=== PATIENT | female | born 1995 | race Caucasian/White ===

== ENCOUNTER 2016-06-12 13:24 | Emergency (ER) | payer MEDICAID ==
[~2016-06-12] VITALS: Ht 157.5 cm; Wt 57.2 kg
[~2016-06-12 13:24] MED LIST: DCS100C PO; FRS325T PO; HYDR-3812 PO; HYDR1CAP2 PO; IBP600T1 PO; IBUP-1773 PO; OXYC-12 PO; PREN-148 PO; PREN1TAB39 PO
--- OUTSIDE RECORDS SUMMARY | 2016-06-12 13:29 | XMS REPORT ---
Author Author NGUYEN NORIEGA Organization [employer] Address Unknown Phone Unavailable Care Team Providers Care Dry Wall Sprayer Name Role Phone NGUYEN NORIEGA CP Unavailable Allergies No Known Allergies Problems Problem Type Condition ICD-9 Code Onset Dates Condition Status Assessment Dental examination V72.2 Active Medications No Known Medications Procedures Procedure Coding System Code Date Periodontal scaling & root CPT-4 D4341 October 29, 2014 Billing Notes on claim CPT-4 EC109 October 29, 2014 Periodontal scaling & root CPT-4 D4341 October 29, 2014 Results No Known Results Summary Purpose [employer] Submission
--- NOTE | 2016-06-12 14:36 | ED GU-Female ---
General Chief Complaint: -Female Stated Complaint: VAGINAL BLEEDING Nursing Triage Note: AMB TO ROOM FOUND OUT YESTERDAY AT [facility] SHE IS APX 8 WEEKS PREG. ONSET TODAY OF VAG BLEEDING NO CRAMPING. Nursing Sepsis Screen: No Definite Risk Source: patient Exam Limitations: no limitations History of Present Illness Time seen by provider: 14:35 Initial Comments 20-year-old female patient presents to the emergency department with complaints of onset of vaginal bleeding today. Patient reports finding out yesterday she is at [facility] and estimates to be approximately 8 weeks . Timing/Duration: this morning Severity/Quality: mild Location: vaginal Radiation: none Activities at Onset: none Prior Genitourinary Problems: none Sexual [place] History: less than 2 months ago, single partner Modifying Factors: Worsens With Other (denies modifying factors) Allergies and Home Medications Allergies Coded Allergies: No Known Drug Allergies (Unverified , 01/28/10) Home Medications Cephalexin 500 Mg Capsule #9 500 MG PO TID Prescribed by: VISHNU CESAR on 06/12/16 1612 Ferrous Sulfate 325 Mg Tablet 1 TAB PO BID (Reported) Hydrocodone/Acetaminophen 1 Each Tablet #30 1 TAB PO Q4H PRN PRN PAIN Prescribed by: NIECY BAUMANN on 02/07/15 1005 Ibuprofen 600 Mg Tablet #60 600 MG PO Q6H PRN PRN PAIN Prescribed by: NIECY BAUMANN on 02/07/15 1005 Vit #76/Iron,Carb/FA 1 Each Tablet 1 EACH PO (Reported) Constitutional: No chills, No diaphoresis, No dizziness, No fever, No malaise, No weakness EENTM: no symptoms reported Respiratory: no symptoms reported Cardiovascular: no symptoms reported Gastrointestinal: No abdominal pain, No constipation, No diarrhea, No loss of appetite, No nausea, No vomiting Genitourinary: see HPIdenies burning, denies dysuria, denies frequency, denies flank pain, denies pain : Yes Musculoskeletal: No back pain Skin: no symptoms reported Psychiatric/Neurological: No Symptoms Reported All Other Systemes Reviewed Negative Unless Noted: Yes (Negative excepted noted.) Past Qawszoi-Icxzwv-Cwjzru Hx Patient Social History Former Smoker/When Quit: Jun 05, 2014 Recent Foreign Travel: No Contact w/Someone Who Travel: No Recent Infectious Disease Expo: No Recent Hopitalizations: No Immunizations Up To Date Tetanus Booster (TDap): Less than 5yrs PED Vaccines UTD: No Surgeries HX Surgeries: No Respiratory Hx Respiratory Disorders: No Cardiovascular Hx Cardiac Disorders: No Neurological Hx Neurological Disorders: No Reproductive System : Yes Hx : 3 Hx Para: 2 Hx Reproductive Disorders: No Genitourinary Hx Genitourinary Disorders: No Gastrointestinal Hx Gastrointestinal Disorders: No Musculoskeletal Hx Musculoskeletal Disorders: No Endocrine Hx Endocrine Disorders: No HEENT HX ENT Disorders: No Cancer Hx Cancer: No Psychosocial Hx Psychiatric Problems: No Integumentary HX Skin/Integumentary Disorder: No Blood Transfusions Hx Blood Disorders: No Adverse Reaction to a Blood Tr: No Reviewed Nursing Assessment Reviewed/Agree w Nursing PMH: Yes Family Medical History Significant Family History: No Pertinent Family Hx Family Medial History: Alcoholism Asthma G8 BROTHER, Onset:Childhood Physical Exam Vital Signs Vital Sign - Last 12Hours 06/12/16 14:00 Temp 98.8 Pulse 98 Resp 22 B/P 118/72 Pulse Ox 99 O2 Delivery Room Air Capillary Refill : Less Than 3 Seconds General Appearance: WD/WN no apparent distress Neck: supple normal inspection Cardiovascular: normal peripheral pulses regular rate, rhythm no edema no murmur Respiratory: lungs clear normal breath sounds no respiratory distress Gastrointestinal: normal bowel sounds non tender soft no organomegalyNo distended Back: normal inspection no CVA tenderness Extremities: no pedal edema normal capillary refill Neurologic/Psychiatric: alert normal mood/affect oriented x 3 Skin: normal color warm/dry Progress/Results/Core Measures Results/Orders Lab Results Laboratory Tests Test 06/12/16 14:57 06/12/16 15:40 Range/Units Basophils # (Auto) 0.1 0.0-0.1 10^3/uL Basophils (%) (Auto) 0 0-10 % Eosinophils # (Auto) 0.3 0.0-0.3 10^3/uL Eosinophils (%) (Auto) 3 0-10 % Hematocrit 40 35-52 % Hemoglobin 13.6 11.5-16.0 G/DL Human Chorionic Gonadotropin, Quant 1321 H <5 MIU/ML Lymphocytes # (Auto) 4.0 1.0-4.0 X 10^3 Lymphocytes (%) (Auto) 34 12-44 % Mean Corpuscular Hemoglobin 31 25-34 PG Mean Corpuscular Hemoglobin Concent 34 32-36 G/DL Mean Corpuscular Volume 91 80-99 FL Mean Platelet Volume 10.0 7.4-10.4 FL Monocytes # (Auto) 1.3 H 0.0-1.0 X 10^3 Monocytes (%) (Auto) 11 0-12 % Neutrophils # (Auto) 6.0 1.8-7.8 X 10^3 Neutrophils (%) (Auto) 51 42-75 % Platelet Count 287 130-400 10^3/uL Red Blood Count 4.39 4.35-5.85 10^6/uL Red Cell Distribution Width 15.2 H 10.0-14.5 % White Blood Count 11.7 H 4.3-11.0 10^3/uL Urine Bacteria NEGATIVE /HPF Urine Bilirubin NEGATIVE NEGATIVE Urine Casts NONE /LPF Urine Clarity SLIGHTLY CLOUDY Urine Color YELLOW Urine Crystals NONE /LPF Urine Culture Indicated NO Urine Glucose (UA) NEGATIVE NEGATIVE Urine Ketones NEGATIVE NEGATIVE Urine Leukocyte Esterase 1+ H NEGATIVE Urine Mucus NEGATIVE /LPF Urine Nitrite NEGATIVE NEGATIVE Urine Protein NEGATIVE NEGATIVE Urine RBC 0-2 /HPF Urine RBC (Auto) 4+ H NEGATIVE Urine Specific [place] 1.015 L 1.016-1.022 Urine Squamous Epithelial Cells 25-50 H /HPF Urine Urobilinogen 4 H NORMAL MG/DL Urine WBC RARE /HPF Urine pH 8 5-9 My Orders Orders-VISHNU CESAR Cbc With Automated Diff (06/12/16 14:24) Hcg,Quantitative (06/12/16 14:24) Ua Culture If Indicated (06/12/16 14:24) Us Ob Single Fetus<14 [id number] (06/12/16 14:24) Vital Signs/I&O Vital Sign - Last 12Hours 06/12/16 06/12/16 14:00 16:34 Temp 98.8 Pulse 98 89 Resp 22 18 B/P 118/72 Pulse Ox 99 98 O2 Delivery Room Air Blood Pressure Mean: 87 Diagnostic Imaging Diagonstic Imaging: Ultrasound Plain Films/CT/US/NM/MRI: pelvis Comments FINDINGS: Single live intrauterine is identified with a heart rate of 121 beats per minute. There is no subchorionic hemorrhage. The adnexa are normal , bilaterally. IMPRESSION: 1. Single live intrauterine , 6 weeks 2 days , with a due date of 02/03/17. 2. No abnormality identified. Dictated by: Dictated on workstation # [id number] Reviewed: Reviewed by Me (radiology report reviewed by me.) Departure Communication Progress Notes Laboratory and diagnostic findings discussed with the patient. Plan for discharge to home with follow-up as an outpatient with Dr. Avila this week. All return precautions were discussed with the patient as described in the discharge instructions of this report. Patient voices understanding and agrees with the treatment plan. Patient case discussed with Dr. Pastor, he agrees with the plan of care. Impression Impression: Primary Impression: Threatened miscarriage in early Disposition: HOME, SELF-CARE Condition: Improved Departure-Patient Inst. Decision time for Depature: 16:11 Referrals: SOPHIA AVILA MD (PCP/Family) Primary Care Physician Patient Instructions: Threatened Miscarriage (DC) Add. Discharge Instructions: All discharge instructions reviewed with patient and/or family. Voiced understanding. Medications as directed. Tylenol over the counter as needed for pain. Drink plenty of fluids. No strenuous activity, tampons, or intercourse until released by your primary care physician or bill distributor. Follow-up with your bill distributor Monday or Monday for recheck, repeat labs/ ultrasound, to establish care, and for possible need for pap smear. Return to the emergency department for worsened bleeding (greater than 2 pads per hour for 2 hours), vaginal discharge, fever, difficulty urinating, or any other concerns. Scripts Cephalexin 500 Mg [id number] Mg PO TID #9 CAP Ref 0 Prov:VISHNU CESAR 06/12/16 Work/School Note: Local Medical Staff Listing, Work Release Form Date Seen in the Emergency Department: Jun 12, 2016 Return to Work: Jun 14, 2016 Other Restrictions Listed Below: no strenuous activity until released by your OB. VISHNU CESAR Jun 12, 2016 14:35
[2016-06-12 15:06] LABS: BASOPHILS # (AUTO) 0.1 10^3/uL (0.0-0.1); BASOPHILS % (AUTO) 0 % (0-10); EOSINOPHILS # (AUTO) 0.3 10^3/uL (0.0-0.3); EOSINOPHILS % (AUTO) 3 % (0-10); LYMPHOCYTES % (AUTO) 34 % (12-44); MEAN CORPUSCULAR HEMOGLOBIN 31 PG (25-34); MEAN CORPUSCULAR HGB CONC 34 G/DL (32-36); MEAN CORPUSCULAR VOLUME 91 FL (80-99); MONOCYTES # (AUTO) 1.3 X 10^3 (0.0-1.0); MONOCYTES % (AUTO) 11 % (0-12); NEUTROPHILS % (AUTO) 51 % (42-75); PLATELET COUNT 287 10^3/uL (130-400); RED BLOOD COUNT 4.39 10^6/uL (4.35-5.85); RED CELL DISTRIBUTION WIDTH 15.2 % (10.0-14.5); WHITE BLOOD COUNT 11.7 10^3/uL (4.3-11.0)
[2016-06-12 15:47] LABS: BILIRUBIN,URINE NEGATIVE (NEGATIVE); KETONES,URINE NEGATIVE (NEGATIVE); LEUKOCYTE ESTERASE ,URINE 1+ (NEGATIVE); NITRITE,URINE NEGATIVE (NEGATIVE); PH,URINE 8 (5-9); PROTEIN,URINE NEGATIVE (NEGATIVE); UROBILINOGEN,URINE 4 MG/DL (NORMAL)
--- NOTE | 2016-06-12 15:48 | Diagnostic Imaging Report ---
INDICATION: Vaginal bleeding, early . COMPARISON: None. EXAMINATION: OB ultrasound. FINDINGS: Single live intrauterine is identified with a heart rate of 121 beats per minute. There is no subchorionic hemorrhage. The adnexa are normal, bilaterally. IMPRESSION: 1. Single live intrauterine , 6 weeks 2 days, with a due date of 02/03/17. 2. No abnormality identified. Dictated by: Dictated on workstation # [id number]
[2016-06-12 16:03] LABS: SQUAMOUS EPITHELIAL CELL,UR 25-50 /HPF; WBC,URINE RARE /HPF
[2016-06-12] MEDS ORDERED: CEPH500C PO (16:12)
[2016-06-12 16:34] VITALS: BP 120/72
== END 2016-06-12 16:35 | disposition home or self-care (01) ==
LOC: EDUNIT# 13:24 → ER 13:26
DX: O20.0 Threatened abortion (principal); Z3A.01 Less than 8 weeks gestation of pregnancy
CPT/HCPCS: 36415; 76801; 81000; 84702; 85025

== ENCOUNTER → 2016-06-17 | Outpatient (CLI) | payer MEDICAID ==
[~2016-06-17] MED LIST changes: +CEPH500C PO
--- NOTE | 2016-06-17 11:51 | Diagnostic Imaging Report ---
First trimester OB ultrasound. INDICATION: Pelvic cramping and passage of tissue. FINDINGS: The uterus is 8.1 x 4 x 5.3 cm. The endometrial stripe is 6 mm in thickness. Unfortunately the previously seen gestational sac and embryo on exam from 06/12/2016 is not present at this time compatible with interval complete . There is no endometrial significant thickening, heterogeneity, or increased vascularity seen. No portions of the sac or embryo are identified to suggest retained products. The myometrium appears homogeneous. The right ovary is 3.6 x 3.8 x 2.5 cm and appears normal. The left ovary is obscured by bowel loops. IMPRESSION: Findings compatible with interval spontaneous complete . Report was called/ faxed to (closed) office of Dr. Chopra @ 11:49 AM/mary. Dictated by: Dictated on workstation # [id number]
== END ==
LOC: RAD 10:12
PROVIDERS: ATTEND Family Medicine
DX: O03.9 Complete or unspecified spontaneous abortion without complication (principal); Z3A.00 Weeks of gestation of pregnancy not specified
CPT/HCPCS: 76801

== ENCOUNTER → 2016-10-13 | Outpatient (CLI) | payer MEDICAID ==
--- NOTE | 2016-10-13 12:45 | Diagnostic Imaging Report ---
First trimester OB ultrasound. INDICATION: Dating. FINDINGS: There is a normal-appearing single intrauterine . An embryo is seen with cardiac activity at 169 beats per minute. The crown-rump length is at 11 weeks and zero day. RUBEN is 05/04/17. Normal appearing right ovary seen. Left ovary is obscured by bowel gas. IMPRESSION: Live single intrauterine . Dictated by: Dictated on workstation # [id number]
== END ==
LOC: RAD 10:34
PROVIDERS: ATTEND Family Medicine
DX: Z36 Encounter for antenatal screening of mother (principal); Z3A.11 11 weeks gestation of pregnancy
CPT/HCPCS: 76801

== ENCOUNTER → 2016-12-09 | Outpatient (CLI) | payer MEDICAID ==
--- NOTE | 2016-12-09 14:41 | Diagnostic Imaging Report ---
INDICATION: Undergoing anatomical evaluation. TECHNIQUE: Multiple real-time grayscale images were obtained over the gravid uterus. COMPARISON: None FINDINGS: Single viable intrauterine currently in cephalic presentation. Normal amount of amniotic fluid. Placenta is anterior and low-lying. Definitive previa does not appear to be present. Visualized anatomical structures are unremarkable. The four-chamber heart however is unable to be visualized on current examination. There was reported active heart rate, however no pictures were able to be obtained. Biometrical measurements are as follows: Biparietal 3.89 cm, age 17 weeks 6 days. Head circumference 15.05 cm, age 18 weeks 1 days. Abdominal circumference 12.45 cm, age 18 weeks 1 days. Femur length 2.72 cm, age 18 weeks 3 days. Sonographic estimate age: 18 weeks 1 days. Sonographic estimated date of delivery: 05/11/17. Estimated Weight: 227 gm (+/- 33 gm). LMP percentile: 7%. heart rate: regular beats per minute. number: 1 of 1. IMPRESSION: 1. Single viable intrauterine currently in cephalic presentation. Current sonographic estimated age at 18 weeks one day for an estimated date of delivery 05/11/2017. No abnormalities noted at this time. However, the four-chamber heart could not be adequately visualized at this time. 2. Additionally, the placenta is low-lying without definitive evidence for previa. Dictated by: Dictated on workstation # [id number]
== END ==
LOC: RAD 11:39
PROVIDERS: ATTEND Family Medicine
DX: Z36 Encounter for antenatal screening of mother (principal); Z3A.18 18 weeks gestation of pregnancy
CPT/HCPCS: 76805

== ENCOUNTER → 2017-02-13 | Outpatient (CLI) | payer MEDICAID ==
--- NOTE | 2017-02-13 19:07 | Diagnostic Imaging Report ---
INDICATION: Follow-up placenta and four-chamber view. COMPARISON: 12/09/2016. TECHNIQUE: Multiple real-time grayscale images were obtained over the gravid uterus. FINDINGS: heart rate is 143 beats per minute. The placenta is anterior. No placenta previa. The four-chamber view appears grossly unremarkable. The cervix appears long and closed with 4.2 cm length. JANAY is 9 cm. IMPRESSION: The placenta is anterior with no placenta previa. The four-chamber view appears unremarkable. Dictated by: Dictated on workstation # [id number]
== END ==
LOC: RAD 13:22
PROVIDERS: ATTEND Family Medicine
DX: Z36 Encounter for antenatal screening of mother (principal); Z3A.00 Weeks of gestation of pregnancy not specified
CPT/HCPCS: 76816

== ENCOUNTER 2017-04-17 10:34 | Outpatient (CLI) | payer MEDICAID ==
[~2017-04-17] VITALS: Ht 157.5 cm; Wt 74.4 kg
[2017-04-17 10:45] VITALS: BP 120/71
[2017-04-17] MEDS ORDERED: D5 LR IV SOLUTION 1,000 ML IV SCH (11:15)
[2017-04-17 11:19] LABS: BILIRUBIN,URINE NEGATIVE (NEGATIVE); KETONES,URINE NEGATIVE (NEGATIVE); LEUKOCYTE ESTERASE ,URINE 2+ (NEGATIVE); NITRITE,URINE NEGATIVE (NEGATIVE); PH,URINE 7 (5-9); PROTEIN,URINE NEGATIVE (NEGATIVE); UROBILINOGEN,URINE NORMAL (NORMAL)
[2017-04-17 11:29] LABS: SQUAMOUS EPITHELIAL CELL,UR 25-50 /HPF
[2017-04-17] MEDS ORDERED: INFLUENZA TRIvalent 2017-2018 0.5 ML/45 MCG SYR IM ONE (12:15)
[2017-04-17 12:50] VITALS: BP 108/67
[2017-04-17 13:15] VITALS: BP 108/67
--- NOTE | 2017-04-18 11:44 | Physician Query-Final Dx ---
YOLETTE GUPTA 04/18/17 1144: Clinic Account Progress/Dx Physician Query: Please give diagnosis Date of Service Apr 17, 2017 at 10:34 SOPHIA AVILA MD 04/19/17 0713: Clinic Account Progress/Dx DIAGNOSIS: Diagnosis 1. IUP at 37 weeks 2. Uterine irritability, non-labor YOLETTE GUPTA Apr 18, 2017 11:44 SOPHIA AVILA MD Apr 19, 2017 07:13
== END 2017-04-17 13:15 | disposition home or self-care (01) ==
LOC: WSo 10:34 → LDRP 10:34 → WSo 13:15
PROVIDERS: ATTEND Family Medicine
DX: N85.9 Noninflammatory disorder of uterus, unspecified (principal); Z3A.37 37 weeks gestation of pregnancy
CPT/HCPCS: 81000; 96360; 96361; 99213

== ENCOUNTER 2017-04-22 20:50 | Outpatient (CLI) | payer MEDICAID ==
[~2017-04-22] VITALS: Ht 157.5 cm; Wt 77.1 kg
[2017-04-22 21:00] VITALS: BP 124/71
[2017-04-22 21:07] VITALS: BP 124/71
[2017-04-22 21:09] LABS: BILIRUBIN,URINE NEGATIVE (NEGATIVE); KETONES,URINE 1+ (NEGATIVE); LEUKOCYTE ESTERASE ,URINE 2+ (NEGATIVE); NITRITE,URINE NEGATIVE (NEGATIVE); PH,URINE 6.5 (5-9); PROTEIN,URINE 1+ (NEGATIVE); UROBILINOGEN,URINE 4 MG/DL (NORMAL)
[2017-04-22 21:35] VITALS: BP 112/68
[2017-04-22 21:51] LABS: SQUAMOUS EPITHELIAL CELL,UR >50 /HPF
[2017-04-22 22:11] VITALS: BP 109/59
[2017-04-23] MEDS ORDERED: INFLUENZA TRIvalent 2017-2018 0.5 ML/45 MCG SYR IM ONE (08:00)
--- NOTE | 2017-04-24 12:13 | Physician Query-Final Dx ---
MADY KRISHNAMURTHY 04/24/17 1213: Clinic Account Progress/Dx Physician Query: Please give diagnosis Date of Service Apr 22, 2017 at 20:50 SPENCER EVANGELISTA DO 05/02/17 0852: Clinic Account Progress/Dx DIAGNOSIS: Diagnosis 38w5d GA contractions - not in active labor MADY KRISHNAMURTHY Apr 24, 2017 12:13 SPENCER EVANGELISTA DO May 02, 2017 08:52
== END 2017-04-22 22:30 | disposition home or self-care (01) ==
LOC: WSo 20:50 → LDRP 20:51 → WSo 22:30
PROVIDERS: ATTEND Family Medicine
DX: O47.1 False labor at or after 37 completed weeks of gestation (principal); Z3A.38 38 weeks gestation of pregnancy
CPT/HCPCS: 81000; 87088; 99213

== ENCOUNTER 2017-04-28 06:17 | Inpatient (IN) | payer MEDICAID ==
[~2017-04-28] VITALS: Ht 157.5 cm; Wt 77.1 kg
[2017-04-28] VITALS (40 sets, daily range): BP systolic 97–128; BP diastolic 52–78
--- OUTSIDE RECORDS SUMMARY | 2017-04-28 06:23 | XMS REPORT ---
Author Author MARIA FERNANDA BIRCH Organization [facility] Address [address] [place] [address] Care Team Providers Care Tin Roller Hot Mill Name Role Phone MARIA FERNANDA BIRCH Unavailable PROBLEMS Type Condition ICD9-CM Code [id number] Code Onset Dates Condition Status SNOMED Code Problem Encounter for Depo-Provera contraception Z30.42 Active 041685703 Problem Alcohol dependence, uncomplicated F10.20 Active 54666647 Problem Missed period N92.6 Active 93880493 Problem History of abnormal cervical Pap smear Z87.898 Active 839055193 Problem Tobacco use Z72.0 Active 617349047 Problem Polysubstance abuse F19.10 Active 692899130 Problem Seasonal allergic rhinitis, unspecified allergic rhinitis trigger J30.2 Active 420095973 ALLERGIES Substance Reaction Event Type Date Status N.K.D.A. Unknown Non Drug Allergy Jun, Unknown SOCIAL HISTORY No smoking Hx information available PLAN OF CARE Activity Details Follow Up prn Reason: VITAL SIGNS Height 62 in 2016-06-07 Weight 125.0 lbs 2016-06-07 Temperature 97.9 degrees Fahrenheit 2016-06-07 Heart Rate 76 bpm 2016-06-07 Respiratory Rate 20 2016-06-07 BMI 22.86 kg/m2 2016-06-07 Blood pressure systolic 110 mmHg 2016-06-07 Blood pressure diastolic 72 mmHg 2016-06-07 MEDICATIONS Medication Instructions Dosage Frequency Start Date End Date Duration Status Cetirizine HCl 10 MG Orally Once a day 1 tablet 24h Jun, 30 day (s) Active Mucinex 600 MG Orally every 12 hrs 1 tablet as needed 12h Jun, Jun, 10 days Active Bactrim DS 800-160 MG Orally Twice a day 1 tablet 12h Jun, 10 day(s) Active RESULTS No Results PROCEDURES Procedure Date Ordered Related Diagnosis Body Site Office Visit, Est Pt., Level 3 Jun 07, 2016 IMMUNIZATIONS No Known Immunizations
--- OUTSIDE RECORDS SUMMARY | 2017-04-28 06:23 | XMS REPORT ---
Author Author VICENTE BAUTISTA Organization [facility] Address [address] [place] [address] Care Team Providers Care Aircraft Launch And Recovery Technician Name Role Phone VICENTE BAUTISTA Unavailable PROBLEMS Type Condition ICD9-CM Code ENS34-WA Code Onset Dates Condition Status SNOMED Code Problem Encounter for Depo-Provera contraception Z30.42 Active 805158811 Problem Alcohol dependence, uncomplicated F10.20 Active 19357322 Problem Missed period N92.6 Active 14946518 Problem History of abnormal cervical Pap smear Z87.898 Active 722367300 Problem Tobacco use Z72.0 Active 648188205 Problem Polysubstance abuse F19.10 Active 556599511 Problem Seasonal allergic rhinitis, unspecified allergic rhinitis trigger J30.2 Active 017086085 ALLERGIES Substance Reaction Event Type Date Status Penicillin G Sodium Unknown Drug Allergy Aug, Active SOCIAL HISTORY Never Assessed PLAN OF CARE Activity Details Follow Up prn Reason: VITAL SIGNS Height 62 in 2016-08-18 Weight 139.6 lbs 2016-08-18 Temperature 99.6 degrees Fahrenheit 2016-08-18 Heart Rate 80 bpm 2016-08-18 Respiratory Rate 20 2016-08-18 BMI 25.53 kg/m2 2016-08-18 Blood pressure systolic 104 mmHg 2016-08-18 Blood pressure diastolic 72 mmHg 2016-08-18 MEDICATIONS Medication Instructions Dosage Frequency Start Date End Date Duration Status Triamcinolone Acetonide 0.1 % Externally Twice a day 1 application to affected area 12h Aug, 5 days Active PredniSONE 20 MG Orally 3 tablets x 3 days, followed by 2 tablets x 3 days, followed by 1 tablet x 3 days. as directed Aug, Aug, 9 days Active RESULTS No Results PROCEDURES No Known procedures IMMUNIZATIONS No Known Immunizations MEDICAL (GENERAL) HISTORY Type Description Date Hospitalization History deliveries
--- OUTSIDE RECORDS SUMMARY | 2017-04-28 06:23 | XMS REPORT ---
Author Author WILTON AYALA Organization [facility] Address [address] [place] [address] Care Team Providers Care Bark Grinder Name Role Phone WILTON AYALA Unavailable PROBLEMS Type Condition ICD9-CM Code LLY04-LZ Code Onset Dates Condition Status SNOMED Code Problem Encounter for Depo-Provera contraception Z30.42 Active 147237255 Problem Alcohol dependence, uncomplicated F10.20 Active 60454741 Problem Missed period N92.6 Active 69981722 Problem History of abnormal cervical Pap smear Z87.898 Active 393381323 Problem Tobacco use Z72.0 Active 495542933 Problem Polysubstance abuse F19.10 Active 316395806 Problem Seasonal allergic rhinitis, unspecified allergic rhinitis trigger J30.2 Active 105324628 ALLERGIES Unknown Allergies SOCIAL HISTORY No smoking Hx information available PLAN OF CARE VITAL SIGNS MEDICATIONS Unknown Medications RESULTS No Results PROCEDURES No Known procedures IMMUNIZATIONS No Known Immunizations
--- OUTSIDE RECORDS SUMMARY | 2017-04-28 06:23 | XMS REPORT ---
Author Author WILTON AYALA Organization [facility] Address [address] [place] [address] Care Team Providers Care Ld Teacher Name Role Phone WILTON AYALA Unavailable PROBLEMS Type Condition ICD9-CM Code TUU22-XP Code Onset Dates Condition Status SNOMED Code Problem Encounter for Depo-Provera contraception Z30.42 Active 682108720 Problem Alcohol dependence, uncomplicated F10.20 Active 42500399 Problem Missed period N92.6 Active 81245175 Problem History of abnormal cervical Pap smear Z87.898 Active 397130948 Problem Tobacco use Z72.0 Active 828005744 Problem Polysubstance abuse F19.10 Active 878975843 Problem Seasonal allergic rhinitis, unspecified allergic rhinitis trigger J30.2 Active 473148165 ALLERGIES No Information SOCIAL HISTORY Never Assessed PLAN OF CARE Activity Details Follow Up 1 Week Reason: VITAL SIGNS MEDICATIONS Unknown Medications RESULTS No Results PROCEDURES Procedure Date Ordered Result Body Site Alcohol and/or drug services August 18, 2016 IMMUNIZATIONS No Known Immunizations MEDICAL (GENERAL) HISTORY Type Description Date Hospitalization History deliveries
--- OUTSIDE RECORDS SUMMARY | 2017-04-28 06:23 | XMS REPORT ---
Author Author SIDNEY MILLARD [facility] Address [address] [place] [address] Care Team Providers Care Machine Technician Name Role Phone SIDNEY MILLARD Unavailable PROBLEMS Type Condition ICD9-CM Code MLF34-OP Code Onset Dates Condition Status SNOMED Code Problem Encounter for Depo-Provera contraception Z30.42 Active 865495704 Problem Alcohol dependence, uncomplicated F10.20 Active 15292852 Problem Missed period N92.6 Active 92118242 Problem History of abnormal cervical Pap smear Z87.898 Active 656482923 Problem Tobacco use Z72.0 Active 236144670 Problem Polysubstance abuse F19.10 Active 092828554 Problem Seasonal allergic rhinitis, unspecified allergic rhinitis trigger J30.2 Active 632009240 ALLERGIES Unknown Allergies SOCIAL HISTORY No smoking Hx information available PLAN OF CARE VITAL SIGNS MEDICATIONS Unknown Medications RESULTS No Results PROCEDURES Procedure Date Ordered Related Diagnosis Body Site Psych diagnostic evaluation, established patient Jun 08, 2016 IMMUNIZATIONS No Known Immunizations
--- OUTSIDE RECORDS SUMMARY | 2017-04-28 06:23 | XMS REPORT ---
Author Author WILTON AYALA Organization [facility] Address [address] [place] [address] Care Team Providers Care Peer Health Promoter Name Role Phone WILTON AYALA Unavailable PROBLEMS Type Condition ICD9-CM Code VIK73-QQ Code Onset Dates Condition Status SNOMED Code Problem Encounter for Depo-Provera contraception Z30.42 Active 843690848 Problem Alcohol dependence, uncomplicated F10.20 Active 66870707 Problem Missed period N92.6 Active 73878546 Problem History of abnormal cervical Pap smear Z87.898 Active 884870158 Problem Tobacco use Z72.0 Active 419513510 Problem Polysubstance abuse F19.10 Active 274673653 Problem Seasonal allergic rhinitis, unspecified allergic rhinitis trigger J30.2 Active 746608093 ALLERGIES Unknown Allergies SOCIAL HISTORY No smoking Hx information available PLAN OF CARE VITAL SIGNS MEDICATIONS Unknown Medications RESULTS No Results PROCEDURES No Known procedures IMMUNIZATIONS No Known Immunizations
--- OUTSIDE RECORDS SUMMARY | 2017-04-28 06:23 | XMS REPORT ---
Author Author SPENCER EVANGELISTA [facility] Address [address] [place] [address] Care Team Providers Care Valve Steamer Name Role Phone EVANGELISTASPENCER Unavailable PROBLEMS Type Condition ICD9-CM Code IQH00-LB Code Onset Dates Condition Status SNOMED Code Problem Encounter for Depo-Provera contraception Z30.42 Active 003952108 Problem Alcohol dependence, uncomplicated F10.20 Active 36255493 Problem Missed period N92.6 Active 98178775 Problem History of abnormal cervical Pap smear Z87.898 Active 294168064 Problem Tobacco use Z72.0 Active 349058833 Problem Polysubstance abuse F19.10 Active 591196727 Problem Seasonal allergic rhinitis, unspecified allergic rhinitis trigger J30.2 Active 005264962 ALLERGIES Unknown Allergies SOCIAL HISTORY No smoking Hx information available PLAN OF CARE VITAL SIGNS Height 62 in 2016-06-11 Weight 125.6 lbs 2016-06-11 Temperature 98.0 degrees Fahrenheit 2016-06-11 Heart Rate 78 bpm 2016-06-11 Respiratory Rate 18 2016-06-11 BMI 22.97 kg/m2 2016-06-11 Blood pressure systolic 108 mmHg 2016-06-11 Blood pressure diastolic 68 mmHg 2016-06-11 MEDICATIONS Medication Instructions Dosage Frequency Start Date End Date Duration Status Cetirizine HCl 10 MG Orally Once a day 1 tablet 24h Jun, 30 day (s) Active Bactrim DS 800-160 MG Orally Twice a day 1 tablet 12h Jun, 10 day(s) Active RESULTS Name Result Date Reference Range TEST, URINE (IN HOUSE) 2016-06-11 RESULTS positive Lot # [id number] Control + Exp date 2017 05 31 PROCEDURES Procedure Date Ordered Related Diagnosis Body Site URINE TEST Jun 11, 2016 IMMUNIZATIONS No Known Immunizations
--- OUTSIDE RECORDS SUMMARY | 2017-04-28 06:24 | XMS REPORT ---
Author Author WILTON AYALA Organization [facility] Address [address] [place] [address] Care Team Providers Care Sales Team Member Name Role Phone WILTON AYALA Unavailable PROBLEMS Type Condition ICD9-CM Code [id number] Code Onset Dates Condition Status SNOMED Code Problem Encounter for Depo-Provera contraception Z30.42 Active 745328123 Problem Alcohol dependence, uncomplicated F10.20 Active 86231732 Problem Missed period N92.6 Active 92134668 Problem History of abnormal cervical Pap smear Z87.898 Active 915903418 Problem Tobacco use Z72.0 Active 441614891 Problem Polysubstance abuse F19.10 Active 380920497 Problem Seasonal allergic rhinitis, unspecified allergic rhinitis trigger J30.2 Active 191861688 ALLERGIES Unknown Allergies SOCIAL HISTORY No smoking Hx information available PLAN OF CARE Activity Details Follow Up 2 - 3 Days Reason: VITAL SIGNS MEDICATIONS Unknown Medications RESULTS No Results PROCEDURES Procedure Date Ordered Related Diagnosis Body Site Alcohol and/or drug services Jun 27, 2016 IMMUNIZATIONS No Known Immunizations
--- OUTSIDE RECORDS SUMMARY | 2017-04-28 06:24 | XMS REPORT ---
Author Author ANALI SILVESTRE [facility] Address [address] [place] [address] Care Team Providers Care Bin Tripper Operator Name Role Phone ANALI SILVESTRE Unavailable PROBLEMS Type Condition ICD9-CM Code [id number] Code Onset Dates Condition Status SNOMED Code Problem Encounter for Depo-Provera contraception Z30.42 Active 891732776 Problem Alcohol dependence, uncomplicated F10.20 Active 99108754 Problem Missed period N92.6 Active 81220276 Problem History of abnormal cervical Pap smear Z87.898 Active 820147172 Problem Tobacco use Z72.0 Active 208118882 Problem Polysubstance abuse F19.10 Active 907824848 Problem Seasonal allergic rhinitis, unspecified allergic rhinitis trigger J30.2 Active 009153336 ALLERGIES No Information SOCIAL HISTORY Never Assessed PLAN OF CARE Activity Details Follow Up n/a Reason: VITAL SIGNS MEDICATIONS Unknown Medications RESULTS No Results PROCEDURES Procedure Date Ordered Result Body Site ALCOHOL AND/OR DRUG ASSESSMENT Jul 19, 2016 IMMUNIZATIONS No Known Immunizations MEDICAL (GENERAL) HISTORY Type Description Date Hospitalization History deliveries
--- OUTSIDE RECORDS SUMMARY | 2017-04-28 06:24 | XMS REPORT ---
Author Author WILTON AYALA Organization [facility] Address [address] [place] [address] Care Team Providers Care Manager Risk Name Role Phone WILTON AYALA Unavailable PROBLEMS Type Condition ICD9-CM Code [id number] Code Onset Dates Condition Status SNOMED Code Problem Encounter for Depo-Provera contraception Z30.42 Active 555826827 Problem Alcohol dependence, uncomplicated F10.20 Active 05460064 Problem Missed period N92.6 Active 85208489 Problem History of abnormal cervical Pap smear Z87.898 Active 742043285 Problem Tobacco use Z72.0 Active 207070206 Problem Polysubstance abuse F19.10 Active 293127000 Problem Seasonal allergic rhinitis, unspecified allergic rhinitis trigger J30.2 Active 781866005 ALLERGIES No Information SOCIAL HISTORY Never Assessed PLAN OF CARE Activity Details Follow Up 2 - 3 Days Reason: VITAL SIGNS MEDICATIONS Unknown Medications RESULTS No Results PROCEDURES Procedure Date Ordered Result Body Site Alcohol and/or drug services November 02, 2016 IMMUNIZATIONS No Known Immunizations MEDICAL (GENERAL) HISTORY Type Description Date Hospitalization History deliveries
--- OUTSIDE RECORDS SUMMARY | 2017-04-28 06:24 | XMS REPORT ---
Author Author WILTON AYALA Organization [facility] Address [address] [place] [address] Care Team Providers Care Major General Name Role Phone WILTON AYALA Unavailable PROBLEMS Type Condition ICD9-CM Code [id number] Code Onset Dates Condition Status SNOMED Code Problem Encounter for Depo-Provera contraception Z30.42 Active 157182367 Problem Alcohol dependence, uncomplicated F10.20 Active 56028331 Problem Missed period N92.6 Active 13965584 Problem History of abnormal cervical Pap smear Z87.898 Active 791837156 Problem Tobacco use Z72.0 Active 499808964 Problem Polysubstance abuse F19.10 Active 998652673 Problem Seasonal allergic rhinitis, unspecified allergic rhinitis trigger J30.2 Active 263885425 ALLERGIES No Information SOCIAL HISTORY Never Assessed PLAN OF CARE Activity Details Follow Up 2 - 3 Days Reason: VITAL SIGNS MEDICATIONS Unknown Medications RESULTS No Results PROCEDURES Procedure Date Ordered Result Body Site Alcohol and/or drug services August 15, 2016 IMMUNIZATIONS No Known Immunizations MEDICAL (GENERAL) HISTORY Type Description Date Hospitalization History deliveries
--- OUTSIDE RECORDS SUMMARY | 2017-04-28 06:24 | XMS REPORT ---
Author Author NGUYEN NORIEGA Organization [employer] Address Unknown Phone Unavailable Care Team Providers Care Unmanned Equipment Operator Name Role Phone NGUYEN NORIEGA CP Unavailable [...]
--- OUTSIDE RECORDS SUMMARY | 2017-04-28 06:24 | XMS REPORT ---
Author Author WILTON AYALA Organization [facility] Address [address] [place] [address] Care Team Providers Care Dock Clerk Name Role Phone WILTON AYALA Unavailable PROBLEMS Type Condition ICD9-CM Code [id number] Code Onset Dates Condition Status SNOMED Code Problem Encounter for Depo-Provera contraception Z30.42 Active 494387443 Problem Alcohol dependence, uncomplicated F10.20 Active 42169098 Problem Missed period N92.6 Active 65762765 Problem History of abnormal cervical Pap smear Z87.898 Active 289703126 Problem Tobacco use Z72.0 Active 187823948 Problem Polysubstance abuse F19.10 Active 629628485 Problem Seasonal allergic rhinitis, unspecified allergic rhinitis trigger J30.2 Active 547090386 ALLERGIES No Information SOCIAL HISTORY Never Assessed PLAN OF CARE Activity Details Follow Up 1 Week Reason: VITAL SIGNS MEDICATIONS Unknown Medications RESULTS No Results PROCEDURES Procedure Date Ordered Result Body Site Alcohol and/or drug services Jul 20, 2016 IMMUNIZATIONS No Known Immunizations MEDICAL (GENERAL) HISTORY Type Description Date Hospitalization History deliveries
--- OUTSIDE RECORDS SUMMARY | 2017-04-28 06:24 | XMS REPORT ---
Author Author WILTON AYALA Organization [facility] Address [address] [place] [address] Care Team Providers Care Wiring Technician Name Role Phone WILTON AYALA Unavailable PROBLEMS Type Condition ICD9-CM Code RQF57-MR Code Onset Dates Condition Status SNOMED Code Problem Encounter for Depo-Provera contraception Z30.42 Active 491811500 Problem Alcohol dependence, uncomplicated F10.20 Active 89503092 Problem Missed period N92.6 Active 85883222 Problem History of abnormal cervical Pap smear Z87.898 Active 391358690 Problem Tobacco use Z72.0 Active 710910228 Problem Polysubstance abuse F19.10 Active 713717120 Problem Seasonal allergic rhinitis, unspecified allergic rhinitis trigger J30.2 Active 301060721 ALLERGIES No Information SOCIAL HISTORY Never Assessed PLAN OF CARE Activity Details Follow Up 1 Week Reason: VITAL SIGNS MEDICATIONS Unknown Medications RESULTS No Results PROCEDURES Procedure Date Ordered Result Body Site Alcohol and/or drug services Jul 15, 2016 IMMUNIZATIONS No Known Immunizations MEDICAL (GENERAL) HISTORY Type Description Date Hospitalization History deliveries
--- OUTSIDE RECORDS SUMMARY | 2017-04-28 06:24 | XMS REPORT ---
Author Author WILTON AYALA Organization [facility] Address [address] [place] [address] Care Team Providers Care Crime Scene Examiner Name Role Phone WILTON AYALA Unavailable PROBLEMS Type Condition ICD9-CM Code BUX18-IG Code Onset Dates Condition Status SNOMED Code Problem Encounter for Depo-Provera contraception Z30.42 Active 494234173 Problem Alcohol dependence, uncomplicated F10.20 Active 93825910 Problem Missed period N92.6 Active 57136711 Problem History of abnormal cervical Pap smear Z87.898 Active 527606705 Problem Tobacco use Z72.0 Active 981428435 Problem Polysubstance abuse F19.10 Active 531987896 Problem Seasonal allergic rhinitis, unspecified allergic rhinitis trigger J30.2 Active 454068565 ALLERGIES Unknown Allergies SOCIAL HISTORY No smoking Hx information available PLAN OF CARE VITAL SIGNS MEDICATIONS Unknown Medications RESULTS No Results PROCEDURES No Known procedures IMMUNIZATIONS No Known Immunizations
--- OUTSIDE RECORDS SUMMARY | 2017-04-28 06:24 | XMS REPORT ---
Author Author WILTON AYALA Organization [facility] Address [address] [place] [address] Care Team Providers Care Esthetician Makeup Artist Name Role Phone WILTON AYALA Unavailable PROBLEMS Type Condition ICD9-CM Code [id number]-KI Code Onset Dates Condition Status SNOMED Code Problem Encounter for Depo-Provera contraception Z30.42 Active 266631800 Problem Alcohol dependence, uncomplicated F10.20 Active 81161304 Problem Missed period N92.6 Active 61014396 Problem History of abnormal cervical Pap smear Z87.898 Active 474518605 Problem Tobacco use Z72.0 Active 007172892 Problem Polysubstance abuse F19.10 Active 658900798 Problem Seasonal allergic rhinitis, unspecified allergic rhinitis trigger J30.2 Active 491988482 ALLERGIES No Information SOCIAL HISTORY Never Assessed PLAN OF CARE Activity Details Follow Up 2 - 3 Days Reason: VITAL SIGNS MEDICATIONS Unknown Medications RESULTS No Results PROCEDURES Procedure Date Ordered Result Body Site Alcohol and/or drug services August 22, 2016 IMMUNIZATIONS No Known Immunizations MEDICAL (GENERAL) HISTORY Type Description Date Hospitalization History deliveries
[2017-04-28] MEDS ORDERED: MINERAL OIL CONCENTRATE 99.9% 15 ML UDC TOP PRN (06:30)
[2017-04-28 06:42] LABS: BASOPHILS % (AUTO) 0 % (0-10); EOSINOPHILS # (AUTO) 0.2 10^3/uL (0.0-0.3); EOSINOPHILS % (AUTO) 2 % (0-10); LYMPHOCYTES # (AUTO) 3.1 X 10^3 (1.0-4.0); LYMPHOCYTES % (AUTO) 27 % (12-44); MEAN CORPUSCULAR HEMOGLOBIN 29 PG (25-34); MEAN CORPUSCULAR HGB CONC 33 G/DL (32-36); MEAN CORPUSCULAR VOLUME 87 FL (80-99); MEAN PLATELET VOLUME 10.3 FL (7.4-10.4); MONOCYTES % (AUTO) 9 % (0-12); NEUTROPHILS # (AUTO) 6.9 X 10^3 (1.8-7.8); NEUTROPHILS % (AUTO) 61 % (42-75); PLATELET COUNT 311 10^3/uL (130-400); RED BLOOD COUNT 3.85 10^6/uL (4.35-5.85); WHITE BLOOD COUNT 11.2 10^3/uL (4.3-11.0)
[2017-04-28] MEDS: D5 LR IV SOLUTION 1,000 ML IV SCH ×2 (06:43→14:45)
[2017-04-28] MEDS ORDERED: INFLUENZA TRIvalent 2017-2018 0.5 ML/45 MCG SYR IM ONE (07:15)
[2017-04-28] MEDS ORDERED: OXYTOCIN/NORMAL SALINE 500 ML IV SCH ×3 (08:17→16:08)
--- NOTE | 2017-04-28 08:17 | History & Physical-OB ---
OB - Chief Complaint & HPI Date/Time Date of Admission: Date of Admission: Apr 28, 2017 at 06:17 Time Seen by Provider: 07:30 Chief Complaint/History OB-Reason for Admission/Chief: Induction of Labor Hx : 7 Hx Para: 3 Expected Date of Delivery: May 04, 2017 Gestational Age in Weeks: 39 Gestational Age in Days: 1 Admission Nurse Assessment Rev: Yes History of Labs GBS negative Allergies and Home Medications Allergies Coded Allergies: Penicillins (Verified Allergy, Unknown, 04/28/17) Home Medications No Active Prescriptions or Reported Meds OB - History Hx of Present Care: Yes Ultrasounds: Normal mid trimester US Obstetrical Complications: None Medical Complications: None Obstetrical History Hx Termination: No Hx Multiple Gestation: No Hx Stillbirth: No Hx Complication: No Hx Induced Hypertens: No Hx Maternal Gestational Diabet: Yes Delivery History Hx Dystocia: No Hx Large For Gestational Age I: No Hx Small for Gestational Age I: No Hx Section: No Hx Vaginal Delivery Post C-Sec: No Hx Blood Disorders: No Adverse Rxn to Tranfusion: No Patient Past Medical History No chronic medical problems. Social History/Family History Recent Infectious Disease Expo: No Alcohol Use: Denies Use Recreational Drug Use: No Immunizations Hepatitis A: No Hepatitis B: No Tetanus Booster (TDap): Less than 5yrs OB - Admission Exam Physical Exam Vitals: Vital Signs 04/28/17 06:25 Temp 97.5 Pulse 107 Resp 18 B/P (MAP) 108/68 O2 Delivery Room Air HEENT: Moist Membranes Heart: Rhythm Normal Lungs: Clear Abdomen: Gravid Extremities: Normal Reflexes: Normal Cervical Dilatation: 2cm Effacement: 50% Station: -3 Membranes: Intact Heart Rate: 140's Accelerations: Accelerations Present Intensity: Mild Dickerson Scoring Tool (Modified) Dilation (cm): 1-2cm (1) Effacement (%): 31-51% (1) Descent/Station: -3 (0) Cervix Consistency: Soft (2) Cervix Position: Middle/Mid-Position (1) Add 1 point for: Each previous vaginal delivery (1) Dickerson Score: 8 Labs Laboratory Tests Test 04/28/17 06:22 Range/Units White Blood Count 11.2 H 4.3-11.0 10^3/uL Red Blood Count 3.85 L 4.35-5.85 10^6/uL Hemoglobin 11.2 L 11.5-16.0 G/DL Hematocrit 34 L 35-52 % Mean Corpuscular Volume 87 80-99 FL Mean Corpuscular Hemoglobin 29 25-34 PG Mean Corpuscular Hemoglobin Concent 33 32-36 G/DL Red Cell Distribution Width 14.0 10.0-14.5 % Platelet Count 311 130-400 10^3/uL Mean Platelet Volume 10.3 7.4-10.4 FL Neutrophils (%) (Auto) 61 42-75 % Lymphocytes (%) (Auto) 27 12-44 % Monocytes (%) (Auto) 9 0-12 % Eosinophils (%) (Auto) 2 0-10 % Basophils (%) (Auto) 0 0-10 % Neutrophils # (Auto) 6.9 1.8-7.8 X 10^3 Lymphocytes # (Auto) 3.1 1.0-4.0 X 10^3 Monocytes # (Auto) 1.0 0.0-1.0 X 10^3 Eosinophils # (Auto) 0.2 0.0-0.3 10^3/uL Basophils # (Auto) 0.0 0.0-0.1 10^3/uL OB - Assessment/Plan/Diagnosis Assessment Assessment: induction of labor Plan Plan: Induction Induction Method: AROM Other Plan -desires epidural SOPHIA AVILA MD Apr 28, 2017 08:16
[2017-04-28] MEDS ORDERED: SUFENTA 0.6MCG/ML BUPIVA 0.125 100 ML ONE (08:32)
[2017-04-28] MEDS ORDERED: BUPIVACAINE 0.25% 30 ML (SENSORCAINE) VIAL ONE (08:44)
[2017-04-28] MEDS ORDERED: fentaNYL INJECTION 100 MCG/2 ML AMP ONE (08:44)
[2017-04-28] MEDS ORDERED: LACTATED RINGERS 1,000 ML IV SCH (09:28)
[2017-04-28] MEDS ORDERED: METOCLOPRAMIDE INJ 10 MG/2 ML (REGLAN) IV PRN (09:30)
[2017-04-28] MEDS ORDERED: NALOXONE 0.4 MG/ML 1 ML (NARCAN) VIAL IV PRN ×2 (09:30)
[2017-04-28] MEDS ORDERED: diphenhydrAMINE 50 MG/ML INJ (BENADRYL) IV PRN (09:30)
[2017-04-28] MEDS ORDERED: EPIDURAL (SUFENTA 0.6MCG/ML BUPIVA 0.125%) 100 ML BAG EPI PRN (09:30)
[2017-04-28] MEDS ORDERED: ONDANSETRON 4 MG/2 ML (SDV) Z0FRAN IV PRN (09:30)
[2017-04-28] MEDS ORDERED: CATHETER FLUSH 10 ML SYR IV SCH ×2 (14:00→22:00)
[2017-04-28] MEDS ORDERED: LIDOCAINE PF 2% 5 ML (XYLOCAINE) VIAL ONE (14:11)
--- NOTE | 2017-04-28 16:08 | OB Labor & Delivery Record ---
L&D History Date of Service Date of Service: Apr 28, 2017 History Expected Date of Delivery: May 04, 2017 Gestational Age in Weeks: 39 Hx : 7 Hx Para: 3 Complications Events: Routine care Operative Indications (Cesarea: N/A-Vaginal Delivery Intrapartal Events: None L&D Stage1 Stage One Onset of Labor - Date: Apr 28, 2017 Onset of Labor - Time: 07:20 Monitors and Tracing Monitor Mode: Internal Heart Rate: 140 Monitor Accelerations: Uniform Station: 0 Skilled Nursing Variability: Average (6-10) Short Term Variability: Present Presentation: Vertex Vital Signs VS - Last 72 Hours, by Label 04/28/17 04/28/17 04/28/17 04/28/17 06:25 08:55 09:02 09:07 Temp 97.5 97.0 Pulse 107 80 86 86 Resp 18 18 20 20 B/P (MAP) 108/68 109/68 115/60 111/78 Pulse Ox 98 98 O2 Delivery Room Air Room Air Room Air Room Air 04/28/17 04/28/17 04/28/17 04/28/17 09:14 09:19 09:24 09:30 Pulse 81 80 73 90 Resp 20 20 20 18 B/P (MAP) 106/69 101/64 106/66 111/71 Pulse Ox 97 98 98 97 O2 Delivery Room Air Room Air Room Air Room Air 04/28/17 04/28/17 04/28/17 04/28/17 09:35 09:40 09:45 09:52 Pulse 84 95 94 88 Resp 18 18 16 16 B/P (MAP) 113/69 116/67 119/59 115/61 Pulse Ox 97 98 98 98 O2 Delivery Room Air Room Air Room Air Room Air 04/28/17 04/28/17 04/28/17 04/28/17 10:10 10:25 10:40 10:55 Pulse 70 77 92 68 Resp 16 18 18 18 B/P (MAP) 108/58 122/59 101/59 100/59 Pulse Ox 98 98 97 97 O2 Delivery Room Air Room Air Room Air Room Air 04/28/17 04/28/17 04/28/17 04/28/17 11:07 11:23 11:38 11:53 Pulse 71 82 87 73 Resp 18 16 16 16 B/P (MAP) 99/62 99/58 106/62 114/63 Pulse Ox 97 97 97 98 O2 Delivery Room Air Room Air Room Air Room Air 04/28/17 04/28/17 04/28/17 04/28/17 12:08 12:23 12:38 12:53 Pulse 85 75 85 73 Resp 16 18 18 18 B/P (MAP) 114/61 103/60 103/52 111/60 Pulse Ox 98 98 98 98 O2 Delivery Room Air Room Air Room Air Room Air 04/28/17 04/28/17 04/28/17 04/28/17 13:08 13:23 13:40 13:55 Temp 97.2 Pulse 77 78 74 79 Resp 18 18 20 20 B/P (MAP) 115/68 112/60 107/56 114/61 Pulse Ox 98 98 98 94 O2 Delivery Room Air Room Air Room Air Room Air 04/28/17 04/28/17 04/28/17 14:10 14:25 14:40 Pulse 81 70 87 Resp 20 18 18 B/P (MAP) 118/68 109/56 115/61 Pulse Ox 99 99 99 O2 Delivery Room Air Room Air Room Air Signs of Distress by FHT Signs of Distress no Rupture of Membranes Spontaneous Ruture of Membrane: No Amniotic Membrane Rupture Time: 0720 Amniotic Membrane Fluid Desc.: Clear Induction/Anesthesia Epidural Cath Placement - Time: 0910 L&D Stage2 Stage Two Stage II Date: Apr 28, 2017 Stage II Time: 15:48 Monitors and Tracing Monitor Mode: Internal Heart Rate: 140 Monitor Accelerations: Uniform Skilled Nursing Variability: Average (6-10) Short Term Variability: Present Position: Left Occiput Anterior Presentation: Vertex Signs of Distress by FHT Signs of Distress no Cord Descript/Complications Cord Vessel Description: 3 Vessels Delivery Type Delivery Method: Spontaneous Vaginal Anterior Shoulder: Left Episiotomy/Perineal Laceration Laceraction(s)/Extensions: No Condition of Delivery 1 minute Comment: 8 5 minute Comment: 9 Condition of Condition of : Living Exam: No Observed Abnormalities Resuscitation Resuscitation: N/A - Spontaneous Resp L&D Stage3 Stage Three Stage III Date: Apr 28, 2017 Stage III Time: 15:51 Pictocin Pitocin Administration mu/min: 14 Pitocin ml/hr: 14 Placenta Delivery Placenta Delivery: Spontaneous Delivery Summary Summary Estimated blood loss (mL): 200 Condition of Delivery Examined: Cervix Examined Post Hemorrhage: No SOPHIA AVILA MD Apr 28, 2017 16:08
[2017-04-28] MEDS ORDERED: TETANUS,DIPTH,PERTUSS P/F (BOOSTRIX) 0.5 ML VIAL IM ONE (16:15)
[2017-04-28] MEDS ORDERED: BENZOCAINE/MENTHOL (DERMOPLAST) 56 ML CAN TP PRN (16:15)
[2017-04-28] MEDS ORDERED: WITCH HAZEL(TUCKS) 40 EA JAR TOP PRN (16:15)
[2017-04-28] MEDS ORDERED: MEASLES,MUMPS,RUBELLA 1 EA INJ SQ ONE (16:15)
[2017-04-28] MEDS: IBUPROFEN 600 MG (MOTRIN) TAB PO SCH (18:35)
[2017-04-29 00:50] VITALS: BP 103/60
[2017-04-29] MEDS: IBUPROFEN 600 MG (MOTRIN) TAB PO SCH ×5 (00:50→23:59)
[2017-04-29 05:00] VITALS: BP 101/66
[2017-04-29 07:53] LABS: BASOPHILS % (AUTO) 0 % (0-10); EOSINOPHILS # (AUTO) 0.2 10^3/uL (0.0-0.3); EOSINOPHILS % (AUTO) 2 % (0-10); LYMPHOCYTES # (AUTO) 3.6 X 10^3 (1.0-4.0); LYMPHOCYTES % (AUTO) 24 % (12-44); MEAN CORPUSCULAR HEMOGLOBIN 29 PG (25-34); MEAN CORPUSCULAR HGB CONC 33 G/DL (32-36); MEAN CORPUSCULAR VOLUME 88 FL (80-99); MEAN PLATELET VOLUME 10.2 FL (7.4-10.4); MONOCYTES # (AUTO) 1.1 X 10^3 (0.0-1.0); MONOCYTES % (AUTO) 7 % (0-12); NEUTROPHILS % (AUTO) 67 % (42-75); PLATELET COUNT 260 10^3/uL (130-400); RED BLOOD COUNT 3.55 10^6/uL (4.35-5.85); RED CELL DISTRIBUTION WIDTH 14.3 % (10.0-14.5); WHITE BLOOD COUNT 14.9 10^3/uL (4.3-11.0)
--- NOTE | 2017-04-29 07:57 | Progress Note (SOAP) ---
Subjective Date Seen by Provider: Apr 29, 2017 Time Seen by Provider: 07:50 Subjective/Events-last exam No current complaints. No significant cramping or vag bleeding. Objective Exam Vital Signs Date Time Temp Pulse Resp B/P (MAP) Pulse Ox O2 Delivery O2 Flow Rate FiO2 04/29/17 05:00 98.2 75 18 101/66 97 Room Air 04/29/17 00:50 98.3 83 18 103/60 98 Room Air 04/28/17 20:00 98.3 92 18 97/58 97 Room Air 04/28/17 17:35 82 18 114/64 Room Air 04/28/17 17:20 76 18 114/68 Room Air 04/28/17 17:05 84 18 105/58 Room Air 04/28/17 16:50 98.7 82 20 124/58 Room Air 04/28/17 16:35 98.5 84 20 128/74 Room Air 04/28/17 16:21 98.9 79 18 119/71 Room Air 04/28/17 16:05 98.8 81 18 127/59 Room Air 04/28/17 16:00 87 18 122/57 98 Room Air 04/28/17 14:40 87 18 115/61 99 Room Air 04/28/17 14:25 70 18 109/56 99 Room Air 04/28/17 14:10 81 20 118/68 99 Room Air 04/28/17 13:55 79 20 114/61 94 Room Air 04/28/17 13:40 74 20 107/56 98 Room Air 04/28/17 13:23 78 18 112/60 98 Room Air 04/28/17 13:08 97.2 77 18 115/68 98 Room Air 04/28/17 12:53 73 18 111/60 98 Room Air 04/28/17 12:38 85 18 103/52 98 Room Air 04/28/17 12:23 75 18 103/60 98 Room Air 04/28/17 12:08 85 16 114/61 98 Room Air 04/28/17 11:53 73 16 114/63 98 Room Air 04/28/17 11:38 87 16 106/62 97 Room Air 04/28/17 11:23 82 16 99/58 97 Room Air 04/28/17 11:07 71 18 99/62 97 Room Air 04/28/17 10:55 68 18 100/59 97 Room Air 04/28/17 10:40 92 18 101/59 97 Room Air 04/28/17 10:25 77 18 122/59 98 Room Air 04/28/17 10:10 70 16 108/58 98 Room Air 04/28/17 09:52 88 16 115/61 98 Room Air 04/28/17 09:45 94 16 119/59 98 Room Air 04/28/17 09:40 95 18 116/67 98 Room Air 04/28/17 09:35 84 18 113/69 97 Room Air 04/28/17 09:30 90 18 111/71 97 Room Air 04/28/17 09:24 73 20 106/66 98 Room Air 04/28/17 09:19 80 20 101/64 98 Room Air 04/28/17 09:14 81 20 106/69 97 Room Air 04/28/17 09:07 86 20 111/78 98 Room Air 04/28/17 09:02 86 20 115/60 98 Room Air 04/28/17 08:55 97.0 80 18 109/68 Room Air Capillary Refill : General Appearance: No Apparent Distress Cardiovascular: Regular Rate, Rhythm Gastrointestinal: soft (with uterus firm) Assessment/Plan Assessment/Plan Assess & Plan/Chief Complaint 1. S/P day 1 -continue with routine PP care orders -home in the am of 04/30/2017 Clinical Quality Measures DVT/VTE Risk/Contraindication: Risk Factor Score Per Nursin RFS Level Per Nursing on Admit: 3=High SOPHIA AVILA MD Apr 29, 2017 07:57
--- NOTE | 2017-04-29 08:22 | Anesthesia-Regional Post-Op ---
Regional Patient Condition Mental Status: Alert, Oriented x3 Circulation: Same as Pre-Op Headache: Absent Sensation: Full Recovery Motor Block: Absent Post Op Complications Complications None Follow Up Care/Instructions Patient Instructions None needed. Anesthesia/Patient Condition Patient is doing well, no complaints, stable vital signs, no apparent adverse anesthesia problems. No complications reported per nursing. ROSANNA ALONZO CRNA Apr 29, 2017 08:22
[2017-04-29 09:00] VITALS: BP 95/59
[2017-04-29] MEDS: PRENATAL VITAMIN 1 EA TAB PO SCH (09:40)
[2017-04-29 12:58] VITALS: BP 108/75
[2017-04-29] MEDS: HYDROcodone/APAP 5 MG/325 MG (LORTAB) TAB PO PRN (13:33)
[2017-04-29 18:21] VITALS: BP 101/61
[2017-04-30 00:17] VITALS: BP 103/66
[2017-04-30 06:00] VITALS: BP 93/58
[2017-04-30] MEDS: IBUPROFEN 600 MG (MOTRIN) TAB PO SCH (06:00)
--- NOTE | 2017-04-30 07:16 | Discharge Summary ---
Diagnosis/Chief Complaint Date of Admission Apr 28, 2017 at 06:17 Date of Discharge April 30, 2017 Discharge Date: Apr 30, 2017 Discharge Time: 08:00 Admission Diagnosis Admission Diagnosis 1. Intrauterine at term 39 weeks gestation Discharge Diagnosis 1. Intrauterine at term 39 weeks gestation Reason Hospital Visit 21-year-old 7 now term for female who initially presents to labor and delivery during the morning of April 28, 2017 for induction of labor at 39 weeks 1 day gestation. Patient was with favorable cervix at 2 cm dilated and 50 percent effaced. Her care was essentially unremarkable. She did admit to only a rare contraction on admission. Discharge Summary-OBS Procedures 1. Epidural per anesthesia 2. Spontaneous vaginal delivery Discharge Physical Examination Allergies: Coded Allergies: Penicillins (Verified Allergy, Unknown, 04/28/17) Vitals & I&Os Vital Signs Date Time Temp Pulse Resp B/P (MAP) Pulse Ox O2 Delivery O2 Flow Rate FiO2 04/30/17 06:00 98.7 82 18 93/58 97 Room Air General Appearance: No Acute Distress HEENT: Mucous Memb Moist/[place] Respiratory: Clear to Auscultation Cardiovascular: Regular Rate Abdominal: Soft (with uterus firm) Skin: No Rashes Hospital Course patient was admitted in the morning of April 28, 2017 for induction of labor. Patient underwent AROM with noting of clear fluid. She had scalp electrode placed for monitoring and strip remained reactive throughout the entire course of labor. She did request epidural and anesthesia provided this with excellent results. She did require Pitocin augmentation and eventually went on to completion. Was a completion she delivered a term viable female with 1 push. received Apgars of 8 at 1 minute and 9 at 5 minutes. See labor and delivery summary for full details. Following delivery patient underwent routine care orders. She had no complications during the remainder of hospital stay. She was noted to have hemoglobin 24 hours later of 10.3 compared to initial value of 11.2 on admission. She was asymptomatic with regards to any dizziness or leg pain. She had no shortness of breath. Patient tolerated regular diet and was felt ready for dismissal in the morning of April 30, 2017. She will follow up in 6 weeks. Discharge Instructions to patient/family Please see electronic discharge instructions given to patient. Discharge Medications Reviewed and agree with Discharge Medication list on patient's Discharge Instruction sheet Clinical Quality Measures DVT/VTE Risk/Contraindication: Risk Factor Score Per Nursin RFS Level Per Nursing on Admit: 3=High SOPHIA AVILA MD Apr 30, 2017 07:16
--- NOTE | 2017-04-30 07:33 | Discharge Inst-Women's Service ---
Discharge Inst-Women's Serv Depart Medication/Instructions New, Converted or Re-Newed RX: Other (continue with vitamin. Ibuprofen 200mg (2-3) every 6hrs prn cramps) Consults/Follow Up Additional Follow Up: Yes (with Dr Avila in 6 weeks) Activity Activity: Activity as Tolerated Driving Instructions: You May Drive NO SMOKING: NO SMOKING Nothing Inside Vagina: No [place] (for 6 weeks) Diet Discharge Diet: Regular Diet Return to The Hospital For: as below Symptoms to Report to : Bleeding Excessive, Pain Increased, Fever Over 101 Degrees F, Vaginal Discharge Foul For Any Problems or Questions: Contact Your Physician SOPHIA AVILA MD Apr 30, 2017 07:32
[2017-04-30 07:39] VITALS: BP 102/63
[2017-04-30] MEDS: PRENATAL VITAMIN 1 EA TAB PO SCH (07:41)
[2017-04-30] MEDS: HYDROcodone/APAP 5 MG/325 MG (LORTAB) TAB PO PRN (07:42)
== END 2017-04-30 10:35 | disposition home or self-care (01) | DRG 775 ==
LOC: LDRP 06:17
PROVIDERS: ADMIT Family Medicine; ATTEND Family Medicine
PROC: 10E0XZZ Delivery of Products of Conception, External Approach (ICD-10-PCS; principal; 2017-04-28)
PROC: 3E033VJ Introduction of Other Hormone into Peripheral Vein, Percutaneous Approach (ICD-10-PCS; 2017-04-28)
DX: O80 Encounter for full-term uncomplicated delivery (principal); Z37.0 Single live birth; Z3A.39 39 weeks gestation of pregnancy
CPT/HCPCS: 36415; 85025; 86850; 86900; 86901

== ENCOUNTER 2019-04-29 06:00 | Inpatient (IN) | payer MEDICAID ==
[2019-04-29] VITALS (36 sets, daily range): BP systolic 91–142; BP diastolic 52–85
[~2019-04-29] VITALS: Ht 157.5 cm; Wt 75.4 kg
[~2019-04-29 06:00] MED LIST changes: +ACHD5005 PO; -HYDR-3812 PO
[2019-04-29] MEDS ORDERED: D5 LR IV SOLUTION 1,000 ML IV ONE (06:04)
[2019-04-29] MEDS ORDERED: OXYTOCIN/NORMAL SALINE 500 ML IV SCH ×2 (06:07→12:52)
[2019-04-29] MEDS ORDERED: D5 LR IV SOLUTION 1,000 ML IV SCH (06:07)
--- NOTE | 2019-04-29 06:08 | NUR ---
GUERA RUSH presented to unit via ambulation from ED, accompanied by SO, with plan of INDUCTION. GUERA RUSH weighed, gowned, voided, and to bed. EFHM and TOCO applied, VS taken. GUERA RUSH oriented to bed controls, call light, TV, heat, and A/C controls.
[2019-04-29] MEDS ORDERED: MEPIVACAINE (CARBOCAINE) 2% 50 ML VIAL INJ PRN (06:15)
[2019-04-29] MEDS ORDERED: MINERAL OIL CONCENTRATE 99.9% 15 ML UDC TOP PRN (06:15)
[2019-04-29 06:35] LABS: BASOPHILS % (AUTO) 0 % (0-10); EOSINOPHILS # (AUTO) 0.2 10^3/uL (0.0-0.3); EOSINOPHILS % (AUTO) 2 % (0-10); HEMATOCRIT 36 % (35-52); HEMOGLOBIN 11.8 G/DL (11.5-16.0); LYMPHOCYTES # (AUTO) 3.9 X 10^3 (1.0-4.0); LYMPHOCYTES % (AUTO) 32 % (12-44); MEAN CORPUSCULAR HEMOGLOBIN 30 PG (25-34); MEAN CORPUSCULAR HGB CONC 33 G/DL (32-36); MEAN CORPUSCULAR VOLUME 90 FL (80-99); MEAN PLATELET VOLUME 10.3 FL (7.4-10.4); MONOCYTES # (AUTO) 1.3 X 10^3 (0.0-1.0); MONOCYTES % (AUTO) 11 % (0-12); NEUTROPHILS # (AUTO) 6.9 X 10^3 (1.8-7.8); NEUTROPHILS % (AUTO) 56 % (42-75); PLATELET COUNT 282 10^3/uL (130-400); RED CELL DISTRIBUTION WIDTH 14.4 % (10.0-14.5); WHITE BLOOD COUNT 12.4 10^3/uL (4.3-11.0)
[2019-04-29] MEDS ORDERED: SUFENTA 0.6MCG/ML BUPIVA 0.125 100 ML ONE (07:23)
--- NOTE | 2019-04-29 07:25 | History & Physical-OB ---
OB - Chief Complaint & HPI Date/Time Date of Admission: Date of Admission: Apr 29, 2019 at 06:03 Date seen by a Provider: Apr 29, 2019 Time Seen by a Provider: 07:20 Chief Complaint/History OB-Reason for Admission/Chief: Induction of Labor Hx : 5 Hx Para: 4 Expected Date of Delivery: May 04, 2019 Gestational Age in Weeks: 39 Gestational Age in Days: 2 Admission Nurse Assessment Rev: Yes History of Labs GBS negative Allergies and Home Medications Allergies Coded Allergies: Penicillins (Verified Allergy, Unknown, 04/28/17) Home Medications No Active Prescriptions or Reported Meds Patient Home Medication List Home Medication List Reviewed: Yes OB - History Hx of Present Care: Yes Ultrasounds: Normal mid trimester US Obstetrical Complications: None Medical Complications: None Obstetrical History Hx Termination: No Hx Multiple Gestation: No Hx Stillbirth: No Hx Complication: No Hx Induced Hypertens: No Hx Maternal Gestational Diabet: Yes Delivery History Hx Dystocia: No Hx Large For Gestational Age I: No Hx Small for Gestational Age I: No Hx Section: No Hx Vaginal Delivery Post C-Sec: No Hx Blood Disorders: No Adverse Rxn to Tranfusion: No Patient Past Medical History No chronic medical problems. Social History/Family History Alcohol Use: Denies Use Recreational Drug Use: No Immunizations Hepatitis A: No Hepatitis B: No Tetanus Booster (TDap): Less than 5yrs OB - Admission Exam Physical Exam Vitals: Vital Signs 04/29/19 04/29/19 06:21 06:27 Temp 36.3 Pulse 101 Resp 18 B/P (MAP) 117/72 (87) Pulse Ox 99 O2 Delivery Room Air HEENT: Moist Membranes Heart: Rhythm Normal Lungs: Clear Abdomen: Gravid Cervical Dilatation: 2cm Effacement: 50% Station: -3 Membranes: Intact Heart Rate: 140's Accelerations: Accelerations Present Short Term Variability: Present Residential Variability: Average (6-25) Contractions on Admission: >10 Minutes Apart Intensity: Mild Dickerson Scoring Tool (Modified) Dilation (cm): 1-2cm (1) Effacement (%): 31-51% (1) Descent/Station: -3 (0) Cervix Consistency: Soft (2) Cervix Position: Posterior (0) Add 1 point for: Each previous vaginal delivery (1) Dickerson Score: 8 Labs Laboratory Tests Test 04/29/19 06:25 Range/Units White Blood Count 12.4 H 4.3-11.0 10^3/uL Red Blood Count 3.99 L 4.35-5.85 10^6/uL Hemoglobin 11.8 11.5-16.0 G/DL Hematocrit 36 35-52 % Mean Corpuscular Volume 90 80-99 FL Mean Corpuscular Hemoglobin 30 25-34 PG Mean Corpuscular Hemoglobin Concent 33 32-36 G/DL Red Cell Distribution Width 14.4 10.0-14.5 % Platelet Count 282 130-400 10^3/uL Mean Platelet Volume 10.3 7.4-10.4 FL Neutrophils (%) (Auto) 56 42-75 % Lymphocytes (%) (Auto) 32 12-44 % Monocytes (%) (Auto) 11 0-12 % Eosinophils (%) (Auto) 2 0-10 % Basophils (%) (Auto) 0 0-10 % Neutrophils # (Auto) 6.9 1.8-7.8 X 10^3 Lymphocytes # (Auto) 3.9 1.0-4.0 X 10^3 Monocytes # (Auto) 1.3 H 0.0-1.0 X 10^3 Eosinophils # (Auto) 0.2 0.0-0.3 10^3/uL Basophils # (Auto) 0.0 0.0-0.1 10^3/uL OB - Assessment/Plan/Diagnosis Assessment Assessment: induction of labor Admission Dx IUP at 39w2d Admission Status: Inpatient Order (span 2 midnights) Reason for Inpatient Admission: L&D Plan Plan: Induction Induction Method: AROM Other Plan -epidural planned -pitocin if needed SOPHIA AVILA MD Apr 29, 2019 07:25 POS
[2019-04-29] MEDS ORDERED: LIDOCAINE PF 2% 5 ML (XYLOCAINE) VIAL ONE (09:27)
[2019-04-29] MEDS ORDERED: fentaNYL INJECTION 100 MCG/2 ML AMP ONE (09:27)
[2019-04-29] MEDS ORDERED: BUPIVACAINE 0.25% 30 ML (SENSORCAINE) VIAL ONE (09:27)
[2019-04-29] MEDS ORDERED: LACTATED RINGERS 1,000 ML IV SCH (09:48)
[2019-04-29] MEDS ORDERED: ONDANSETRON 4 MG/2 ML (SDV) Z0FRAN IV PRN (10:00)
[2019-04-29] MEDS ORDERED: diphenhydrAMINE 50 MG/ML INJ (BENADRYL) IV PRN (10:00)
[2019-04-29] MEDS ORDERED: NALOXONE 0.4 MG/ML 1 ML (NARCAN) VIAL IV PRN (10:00)
[2019-04-29] MEDS ORDERED: EPIDURAL (SUFENTA 0.6MCG/ML BUPIVA 0.125%) 100 ML BAG EPI PRN (10:00)
--- NOTE | 2019-04-29 12:11 | NUR ---
dr calderon finished with assessment of perineum and bleeding. [address] calderon. no tears or lacerations per dr calderon. 1212 pericare performed by this RN. new chucks placed to perineum. assisted out of stirrups. repositioned to high harley. 1213 epidural off. 1214 fundal massage u/2 performed by this RN. light flow small clot expressed. 1215 vpad and underwear on with assist x1. 1218 epidural removed tip intact.
--- NOTE | 2019-04-29 12:56 | OB Labor & Delivery Record ---
L&D History Date of Service Date of Service: Apr 29, 2019 History Expected Date of Delivery: May 04, 2019 Gestational Age in Weeks: 39 Hx : 5 Hx Para: 4 Complications Events: Routine care Operative Indications (Cesarea: N/A-Vaginal Delivery Intrapartal Events: None L&D Stage1 Stage One Onset of Labor - Date: Apr 29, 2019 Onset of Labor - Time: 07:13 Monitors and Tracing Monitor Mode: Internal Heart Rate: 125 Monitor Accelerations: Uniform Monitor Decelerations: None Station: -1 Fisher Gill Net Variability: Average (6-10) Short Term Variability: Present Presentation: Vertex Vital Signs VS - Last 72 Hours, by Label POS 04/29/19 04/29/19 04/29/19 04/29/19 06:21 06:27 08:00 08:10 Temp 36.3 36.3 36.4 Pulse 101 101 106 90 Resp 18 18 20 20 B/P (MAP) 117/72 (87) 102/64 (77) 107/69 (82) Pulse Ox 99 99 O2 Delivery Room Air Room Air Room Air Room Air 04/29/19 04/29/19 04/29/19 04/29/19 08:25 08:40 08:55 09:10 Pulse 96 78 85 84 Resp 20 20 20 20 B/P (MAP) 106/68 (81) 110/63 (79) 111/63 (79) 142/79 (100) O2 Delivery Room Air Room Air Room Air Room Air 04/29/19 04/29/19 04/29/19 04/29/19 09:35 09:40 09:45 09:50 Pulse 90 93 97 100 Resp 20 20 20 20 B/P (MAP) 124/85 (98) 123/75 (91) 114/76 (89) 102/59 (73) Pulse Ox 99 99 99 97 O2 Delivery Room Air Room Air Room Air Room Air 04/29/19 04/29/19 04/29/19 04/29/19 09:55 10:00 10:05 10:12 Pulse 107 94 88 91 Resp 20 20 20 20 B/P (MAP) 95/57 (70) 115/57 (76) 107/66 (80) 113/69 (84) Pulse Ox 97 98 98 98 O2 Delivery Room Air Room Air Room Air Room Air 04/29/19 10:15 Pulse 86 Resp 20 B/P (MAP) 120/63 (82) Pulse Ox 98 O2 Delivery Room Air Signs of Distress by FHT Signs of Distress no Rupture of Membranes Spontaneous Ruture of Membrane: No Amniotic Membrane Rupture Time: 712 Amniotic Membrane Fluid Desc.: Clear L&D Stage2 Stage Two Stage II Date: Apr 29, 2019 Stage II Time: 12:07 Monitors and Tracing Monitor Mode: Internal Heart Rate: 125 Monitor Accelerations: Uniform Monitor Decelerations: None [facility] Variability: Average (6-10) Short Term Variability: Present Position: Left Occiput Anterior Presentation: Vertex Signs of Distress by FHT Signs of Distress no Cord Descript/Complications Cord Vessel Description: 3 Vessels Delivery Type Delivery Method: Spontaneous Vaginal Anterior Shoulder: Left Episiotomy/Perineal Laceration Laceraction(s)/Extensions: No Condition of Delivery 1 minute Comment: 8 5 minute Comment: 9 Condition of Condition of Infant: Living Exam: No Observed Abnormalities Resuscitation Resuscitation: N/A - Spontaneous Resp L&D Stage3 Stage Three Stage III Date: Apr 29, 2019 Stage III Time: 12:10 Pictocin Pitocin Administration mu/min: 14 Pitocin ml/hr: 14 Placenta Delivery Placenta Delivery: Spontaneous Delivery Summary Summary Estimated blood loss (mL): 100 Condition of Delivery Examined: Cervix Examined Post Hemorrhage: No Intervention Required none SOPHIA AVILA MD Apr 29, 2019 12:56 POS
[2019-04-29] MEDS ORDERED: MEASLES,MUMPS,RUBELLA 1 EA INJ SQ ONE (13:00)
[2019-04-29] MEDS ORDERED: BENZOCAINE/MENTHOL (DERMOPLAST) 56 ML CAN TP PRN (13:00)
[2019-04-29] MEDS ORDERED: TETANUS,DIPTH,PERTUSS P/F (BOOSTRIX) 0.5 ML VIAL IM ONE (13:00)
[2019-04-29] MEDS ORDERED: WITCH HAZEL(TUCKS) 40 EA JAR TOP PRN (13:00)
[2019-04-29] MEDS ORDERED: CATHETER FLUSH 10 ML SYR IV SCH ×2 (14:00)
--- NOTE | 2019-04-29 14:35 | NUR ---
[id number] resting quietly with family at bedside. eating lunch with family. ffu/0 moderate flow. left leg slightly limited movement r/t epidural infusion during labor. assisted into w/c with assistance x1. transferred to room 309. denies further need at this time. oriented to room, temp control, call light.
[2019-04-29] MEDS: IBUPROFEN 600 MG (MOTRIN) TAB PO SCH ×2 (15:53→21:16)
--- NOTE | 2019-04-29 16:00 | NUR ---
Pt requesting up to br and change. pt up to br with twan rn. able to void. this rn to room. gown changed, linens arranged. pt back to bed. ff u/0. no bleeding noted. Requesting iv out. IV dc'd per orders. Motrin given at this time. pt denies c/o. holding in bed.
[2019-04-29] MEDS: ACETAMINOPHEN 500 MG TAB (TYLENOL) PO SCH (16:53)
--- NOTE | 2019-04-29 19:00 | NUR ---
pt requesting pain meds. vs taken. report given to next shift.
--- NOTE | 2019-04-29 21:00 | NUR ---
FOB voices complaints that infant has not had a bath, no one has checked on them & that pt. is in pain. Pt. is currently in shower, will do shift assessment & assess pain when pt. out. Staff had reported that he had already c/o infant not having @ bath @ exactly 6 hours. Apologized to FOB & explained the benefits of delayed bathing & that it is actually recommended to wait 6-12 hours after delivery for bathing, FOB verbalized understanding. Called Dr. Chopra, update given including FOB's complaints, agreed bathing should be 6-12 hours. No new orders rc'd for pain meds as pt. did not have epis or tears. SO not in room when back to room, discussed bathing & pain meds w/pt, pt verbalized understanding.
[2019-04-29] MEDS: DOCUSATE SODIUM 100 MG (COLACE) CAP PO SCH (21:16)
[2019-04-30 00:19] VITALS: BP 84/54
[2019-04-30] MEDS: ACETAMINOPHEN 500 MG TAB (TYLENOL) PO SCH ×2 (00:19→09:56)
[2019-04-30 04:12] VITALS: BP 90/59
[2019-04-30] MEDS: IBUPROFEN 600 MG (MOTRIN) TAB PO SCH ×2 (04:12→09:56)
[2019-04-30 05:57] LABS: BASOPHILS % (AUTO) 0 % (0-10); EOSINOPHILS # (AUTO) 0.3 10^3/uL (0.0-0.3); EOSINOPHILS % (AUTO) 2 % (0-10); HEMATOCRIT 34 % (35-52); HEMOGLOBIN 11.2 G/DL (11.5-16.0); LYMPHOCYTES # (AUTO) 3.9 X 10^3 (1.0-4.0); LYMPHOCYTES % (AUTO) 25 % (12-44); MEAN CORPUSCULAR HEMOGLOBIN 29 PG (25-34); MEAN CORPUSCULAR HGB CONC 33 G/DL (32-36); MEAN CORPUSCULAR VOLUME 90 FL (80-99); MEAN PLATELET VOLUME 10.2 FL (7.4-10.4); MONOCYTES # (AUTO) 1.6 X 10^3 (0.0-1.0); MONOCYTES % (AUTO) 10 % (0-12); NEUTROPHILS # (AUTO) 9.5 X 10^3 (1.8-7.8); NEUTROPHILS % (AUTO) 62 % (42-75); PLATELET COUNT 281 10^3/uL (130-400); RED CELL DISTRIBUTION WIDTH 14.7 % (10.0-14.5); WHITE BLOOD COUNT 15.4 10^3/uL (4.3-11.0)
--- NOTE | 2019-04-30 07:14 | Discharge Summary ---
Diagnosis/Chief Complaint Date of Admission Apr 29, 2019 at 06:03 Date of Discharge April 30, 2019 Discharge Date: Apr 30, 2019 Discharge Time: 14:00 Admission Diagnosis Admission Diagnosis 1. Intrauterine at term 39 weeks gestation Discharge Diagnosis 1. Intrauterine at term 39 weeks gestation Reason Hospital Visit 23-year-old 5 now term 5 female who initially presented to labor and delivery during the morning of April 29, 2019 for induction of labor at 39 weeks 2 days gestation. Patient had a uneventful course. She was noted to be GBS negative at 36 weeks gestation. She was admitted for artificial rupture membranes and induction of labor. She had occasional contraction on admission. Her EDC was noted to be May 04, 2019. Discharge Summary-OBS Procedures 1. Epidural per anesthesia 2. Spontaneous vaginal delivery Discharge Physical Examination Allergies: Coded Allergies: Penicillins (Verified Allergy, Unknown, 04/28/17) Vitals & I&Os Vital Signs Date Time Temp Pulse Resp B/P (MAP) Pulse Ox O2 Delivery O2 Flow Rate FiO2 04/30/19 04:12 36.5 79 18 90/59 (69) 97 Room Air General Appearance: No Acute Distress Respiratory: Clear to Auscultation Cardiovascular: Regular Rate Abdominal: Soft (With uterus firm) Extremities: No Tenderness/Swelling Skin: No Rashes Neuro: Normal Gait, Normal Speech, Strength at 5/5 X4 Ext Psych/Mental Status: Mental Status NL Hospital Course Was the Problem List Reviewed?: Yes Following admission patient underwent artificial rupture membranes in the [facility] ing of April 29, 2019. Fluid was noted to be clear at that time. She required Pitocin augmentation. She was dilated to 2 cm on admission. Epidural was requested by patient and received early in her labor course. She ultimately went on to completion and was allowed to push. During the first place she was able to deliver a term viable male with Apgars of 8 at 1 minute and 9 at 5 minutes. Delivery was accomplished on April 29, 2019 at 1207. Placenta delivered shortly afterwards at 1210 intact 3 vessel. Following delivery she underwent routine care orders. She was noted to have no complications during the remainder of hospital stay. She had minimal uterine bleeding and had no reports of any chest pain or shortness of breath. She tolerated regular diet. In the morning of April 30, 2019 she was noted to have a hemoglobin of 11.2 and this was compared to admission of 11.6. Patient was felt ready for dismissal during the afternoon of April 30, 2019. Pending Labs Laboratory Tests 04/30/19 05:35: White Blood Count 15.4, Red Blood Count 3.81, Hemoglobin 11.2, Hematocrit 34, Mean Corpuscular Volume 90, Mean Corpuscular Hemoglobin 29, Mean Corpuscular Hemoglobin Concent 33, Red Cell Distribution Width 14.7, Platelet Count 281, Mean Platelet Volume 10.2, Neutrophils (%) (Auto) 62, Lymphocytes (%) (Auto) 25, Monocytes (%) (Auto) 10, Eosinophils (%) (Auto) 2, Basophils (%) (Auto) 0, Neutrophils # (Auto) 9.5, Lymphocytes # (Auto) 3.9, Monocytes # (Auto) 1.6, Eosinophils # (Auto) 0.3, Basophils # (Auto) 0.0 Discharge Instructions to patient/family Please see electronic discharge instructions given to patient. Discharge Medications Reviewed and agree with Discharge Medication list on patient's Discharge Instruction sheet Clinical Quality Measures DVT/VTE Risk/Contraindication: Risk Factor Score Per Nursin RFS Level Per Nursing on Admit: 1=Low/No VTE PPX SOPHIA AVILA MD Apr 30, 2019 07:14 POS
--- NOTE | 2019-04-30 07:16 | Discharge Inst-Women's Service ---
Discharge Inst-Women's Serv Depart Medication/Instructions New, Converted or Re-Newed RX: Other Instructions May take apvu-box-rpiftje ibuprofen 200 mg 2-3 tablets every 6 hours as needed for cramps. Problems Reviewed?: Yes Consults/Follow Up Additional Follow Up: Yes (With Dr. Avila in 6 weeks) Activity Activity: Activity as Tolerated Driving Instructions: You May Drive Nothing Inside Vagina: No [place] (For 6 weeks) Diet Discharge Diet: Regular Diet Return to The Hospital For: As below Symptoms to Report to : Bleeding Excessive, Fever Over 101 Degrees F, Vaginal Discharge Foul For Any Problems or Questions: Contact Your Physician SOPHIA AVILA MD Apr 30, 2019 07:16 POS
--- NOTE | 2019-04-30 07:20 | NUR ---
DR. AVILA HERE TO SEE PT. PLAN FOR DISCHARGE.
[2019-04-30 09:00] VITALS: BP 102/61
--- NOTE | 2019-04-30 09:00 | NUR ---
A.M. ASSESSMENT COMPLETED. VSS. CARING FOR IN ROOM. GOOD INTERACTION NOTED.
[2019-04-30] MEDS: DOCUSATE SODIUM 100 MG (COLACE) CAP PO SCH (09:55)
--- NOTE | 2019-04-30 11:30 | NUR ---
DISCHARGE INSTRUCTIONS REVIEWED WITH COPY TO PT. STATES UNDERSTANDING OF ALL INSTRUCTIONS AND NEED TO F/U SCHEDULED AND NEEDED.
[2019-04-30 12:15] VITALS: BP 108/64
--- NOTE | 2019-04-30 12:15 | NUR ---
VSS. CONTINUES TO HAVE CRAMPING. PREPARING FOR DISCHARGE.
[2019-04-30 13:35] VITALS: BP 108/64
--- NOTE | 2019-04-30 13:35 | NUR ---
DISMISSED AMB FROM [facility] WITH INFANT IN STABLE CONDITION TO FAMILY CAR [facility] BY Bianca,OLDER CHILD, AND LILO SANTIAGO PCT.
--- NOTE | 2019-04-30 15:01 | Anesthesia-Regional Post-Op ---
Regional Patient Condition Mental Status: Alert, Oriented x3 Circulation: Same as Pre-Op Headache: Absent Sensation: Full Recovery Motor Block: Absent Post Op Complications Complications None Follow Up Care/Instructions Patient Instructions None needed. Anesthesia/Patient Condition Patient is doing well, no complaints, stable vital signs, no apparent adverse anesthesia problems. AUDI BERRY DO Apr 30, 2019 15:01 POS
== END 2019-04-30 13:35 | disposition home or self-care (01) | DRG 807 ==
LOC: LDRP 06:03
PROVIDERS: ADMIT Family Medicine; ATTEND Family Medicine
PROC: 10E0XZZ Delivery of Products of Conception, External Approach (ICD-10-PCS; principal; 2019-04-29)
PROC: 10907ZC Drainage of Amniotic Fluid, Therapeutic from Products of Conception, Via Natural or Artificial Opening (ICD-10-PCS; 2019-04-29)
DX: O80 Encounter for full-term uncomplicated delivery (principal); Z37.0 Single live birth; Z3A.39 39 weeks gestation of pregnancy
CPT/HCPCS: 36415; 85025; 86850; 86900; 86901

== ENCOUNTER → 2020-04-20 | Outpatient (CLI) | payer MEDICAID ==
--- NOTE | 2020-04-20 10:48 | Diagnostic Imaging Report ---
INDICATION: dating. TECHNIQUE: Multiple real-time grayscale images were obtained over the gravid uterus. COMPARISON: None. FINDINGS: There is a single live fetus in a variable presentation. heart rate was recorded at 146 BPM. Placenta is anterior. Amniotic fluid index is 10.8 cm. Cervical length is 6.4 cm. kidneys, bladder, and stomach are unremarkable. brain is unremarkable. There is a four-chamber heart. There is a three-vessel cord with normal insertion. spine is unremarkable. Biometrical measurements are as follows: Biparietal 4.33 cm, age 19 weeks 1 days. Head circumference 16.98 cm, age 19 weeks 5 days. Abdominal circumference 14.33 cm, age 19 weeks 5 days. Femur length 3.24 cm, age 20 weeks 1 days. Sonographic estimate age: 19 weeks 5 days. Sonographic estimated date of delivery: 09/09/2020. Estimated Weight: 315 gm (+/- 46 gm). LMP percentile: 28%. heart rate: 146 beats per minute. number: 1 of 1. IMPRESSION: Single live IUP of 19 weeks 5 days gestational age. Estimated date of confinement sonographically is 09/09/2020. No complicating features are detected. Dictated by: Dictated on workstation # [id number]
== END ==
LOC: RAD 09:00
PROVIDERS: ATTEND Family Medicine
DX: Z34.82 Encounter for supervision of other normal pregnancy, second trimester (principal); Z3A.19 19 weeks gestation of pregnancy
CPT/HCPCS: 76805

== ENCOUNTER → 2020-06-17 | Outpatient (CLI) | payer MEDICAID ==
--- NOTE | 2020-06-17 11:23 | Diagnostic Imaging Report ---
INDICATION: Size and dates. TECHNIQUE: Multiple Real-time grayscale images were obtained over the gravid uterus. COMPARISON: 04/20/2020. FINDINGS: The previous OB ultrasound exam of 04/20/2020 noted a single live fetus of approximately 19 weeks 5 days gestation. On this exam, the fetus is again visualized. The fetus is in cephalic presentation and heart motion was noted with a rate of 134 BPM recorded. There are no obvious abnormalities identified although a complete survey was not performed. The growth parameters were not obtained either. The placenta is anterior and there is no previa. The amniotic fluid volume is within normal limits. The cervix measures 4.4 cm in length. IMPRESSION: 1. There is a single live fetus of approximately 20 weeks gestation +/- 1.5 weeks. The EDC remains 09/09/2020. 2. There are no abnormalities identified. 3. The placenta is anterior and there is no previa. 4. The cervical length is within normal limits. Dictated by: Dictated on workstation # [id number]
== END ==
LOC: RAD 06-16 09:43
PROVIDERS: ATTEND Family Medicine
DX: Z34.92 Encounter for supervision of normal pregnancy, unspecified, second trimester (principal); Z3A.20 20 weeks gestation of pregnancy
CPT/HCPCS: 76816

== ENCOUNTER 2020-09-03 05:53 | Inpatient (IN) | payer MEDICAID ==
[~2020-09-03] VITALS: Ht 157.5 cm; Wt 71.9 kg
[2020-09-03] VITALS (43 sets, daily range): BP systolic 99–132; BP diastolic 53–78
[2020-09-03] MEDS ORDERED: D5 LR IV SOLUTION 1,000 ML IV SCH (06:15)
--- NOTE | 2020-09-03 06:43 | History & Physical-OB ---
OB - Chief Complaint & HPI Date/Time Date of Admission: Date of Admission: Sep 03, 2020 at 05:53 Date seen by a Provider: Sep 03, 2020 Time Seen by a Provider: 06:40 Chief Complaint/History OB-Reason for Admission/Chief: Induction of Labor Hx : 5 Hx Para: 4 Expected Date of Delivery: Sep 09, 2020 Gestational Age in Weeks: 39 Gestational Age in Days: 1 Admission Nurse Assessment Rev: Yes History of Labs GBS negative at 36 weeks. Allergies and Home Medications Allergies Coded Allergies: Penicillins (Verified Allergy, Unknown, 04/28/17) Home Medications No Active Prescriptions or Reported Meds Patient Home Medication List Home Medication List Reviewed: Yes OB - History Hx of Present Care: Yes Ultrasounds: Normal mid trimester US Obstetrical Complications: None Medical Complications: None Obstetrical History Hx Termination: No Hx Multiple Gestation: No Hx Stillbirth: No Hx Complication: No Hx Induced Hypertens: No Hx Maternal Gestational Diabet: Yes Delivery History Hx Dystocia: No Hx Large For Gestational Age I: No Hx Small for Gestational Age I: No Hx Section: No Hx Vaginal Delivery Post C-Sec: No Hx Blood Disorders: No Adverse Rxn to Tranfusion: No Patient Past Medical History No chronic medical problems. Immunizations Hepatitis A: No Hepatitis B: No Tetanus Booster (TDap): Less than 5yrs OB - Admission Exam Physical Exam HEENT: Moist Membranes Heart: Rhythm Normal Lungs: Clear Abdomen: Gravid Extremities: Normal Cervical Dilatation: 2cm Effacement: 50% Station: -3 Membranes: Intact Heart Rate: 140's Accelerations: Accelerations Present Decelerations: No Decelerations Short Term Variability: Present Stars Coordinator Variability: Average (6-25) Contractions on Admission: >10 Minutes Apart Intensity: Mild Dickerson Scoring Tool (Modified) Dilation (cm): 1-2cm (1) Effacement (%): 31-51% (1) Descent/Station: -3 (0) Cervix Consistency: Medium(1) Cervix Position: Middle/Mid-Position (1) Add 1 point for: Each previous vaginal delivery (1) Dickerson Score: 8 OB - Assessment/Plan/Diagnosis Assessment Assessment: induction of labor (at 39 weeks.) Admission Dx IUP at term 39 weeks gestation Admission Status: Inpatient Order (span 2 midnights) Reason for Inpatient Admission: Induction of labor Plan Plan: Induction Induction Method: AROM Other Plan -pitocin -epidural SOPHIA AVILA MD Sep 03, 2020 06:43
[2020-09-03] MEDS ORDERED: OXYTOCIN PRE-MIX DRIP 500 ML IV SCH ×2 (07:00→12:45)
[2020-09-03] MEDS ORDERED: fentaNYL 2 mcg/ml BUPIVA 0.125 100 ML ONE (08:03)
[2020-09-03 08:19] LABS: BASOPHILS % (AUTO) 0 % (0-10); EOSINOPHILS # (AUTO) 0.1 10^3/uL (0.0-0.3); EOSINOPHILS % (AUTO) 1 % (0-10); HEMATOCRIT 30 % (35-52); LYMPHOCYTES # (AUTO) 2.3 10^3/uL (1.0-4.0); LYMPHOCYTES % (AUTO) 21 % (12-44); MEAN CORPUSCULAR HEMOGLOBIN 29 pg (25-34); MEAN CORPUSCULAR HGB CONC 33 g/dL (32-36); MEAN CORPUSCULAR VOLUME 88 fL (80-99); MEAN PLATELET VOLUME 9.7 fL (9.0-12.2); MONOCYTES % (AUTO) 9 % (0-12); NEUTROPHILS # (AUTO) 7.6 10^3/uL (1.8-7.8); NEUTROPHILS % (AUTO) 69 % (42-75); PLATELET COUNT 238 10^3/uL (130-400)
[2020-09-03] MEDS ORDERED: fentaNYL INJ 100 MCG/2 ML AMP ONE (08:48)
[2020-09-03] MEDS ORDERED: NALOXONE 0.4 MG/ML 1 ML (NARCAN) VIAL IV PRN (10:00)
[2020-09-03] MEDS ORDERED: LACTATED RINGERS 1,000 ML IV ONE (10:00)
[2020-09-03] MEDS ORDERED: CATHETER FLUSH 10 ML SYR IV PRN (10:00)
[2020-09-03] MEDS ORDERED: fentaNYL 2 mcg/ml BUPIVA 0.125 100 ML IV SCH (10:00)
[2020-09-03] MEDS ORDERED: MEPIVACAINE (CARBOCAINE) 2% 50 ML VIAL ONE (11:57)
--- NOTE | 2020-09-03 12:41 | OB Labor & Delivery Record ---
L&D History Date of Service Date of Service: Sep 03, 2020 History Expected Date of Delivery: Sep 09, 2020 Gestational Age in Weeks: 39 Hx : 5 Hx Para: 5 Complications Events: Routine care Operative Indications (Cesarea: N/A-Vaginal Delivery Intrapartal Events: None L&D Stage1 Stage One Onset of Labor - Date: Sep 03, 2020 Onset of Labor - Time: 06:40 Monitors and Tracing Monitor Mode: Internal Heart Rate: 125 Monitor Accelerations: Uniform Monitor Decelerations: None Station: -1 Skilled Nursing Variability: Average (6-10) Short Term Variability: Present Presentation: Vertex Vital Signs VS - Last 72 Hours, by Label 09/03/20 09/03/20 09/03/20 09/03/20 06:03 07:15 07:30 07:45 Temp 36.9 36.5 Pulse 93 93 78 Resp 18 18 18 B/P (MAP) 113/68 (83) 115/68 (84) Pulse Ox 100 O2 Delivery Room Air 09/03/20 09/03/20 09/03/20 09/03/20 08:00 08:15 08:30 08:45 Pulse 82 88 86 96 Resp 18 18 18 18 B/P (MAP) 119/71 (87) 103/56 (72) 120/59 (79) 128/78 (95) Pulse Ox 100 09/03/20 09/03/20 09/03/20 09/03/20 08:50 08:53 08:56 09:00 Temp 36.8 Pulse 97 95 98 86 Resp 18 18 18 18 B/P (MAP) 117/75 (89) 115/78 (90) 119/75 (90) 118/65 (82) Pulse Ox 100 100 100 100 09/03/20 09/03/20 09/03/20 09/03/20 09:03 09:06 09:09 09:12 Pulse 109 99 81 99 Resp 18 18 18 18 B/P (MAP) 120/69 (86) 115/60 (78) 129/62 (84) 129/66 (87) Pulse Ox 98 99 99 98 09/03/20 09/03/20 09/03/20 09/03/20 09:15 09:18 09:23 09:28 Pulse 95 76 83 93 Resp 18 18 18 18 B/P (MAP) 128/72 (90) 114/59 (77) 107/60 (76) 110/67 (81) Pulse Ox 97 97 97 98 09/03/20 09/03/20 09/03/20 09/03/20 09:35 09:40 09:45 09:55 Pulse 99 92 84 86 Resp 18 18 18 18 B/P (MAP) 120/74 (89) 114/62 (79) 99/54 (69) 109/72 (84) Pulse Ox 98 99 99 98 09/03/20 10:00 Pulse 88 Resp 18 B/P (MAP) 108/64 (79) Pulse Ox 98 Signs of Distress by FHT Signs of Distress no Rupture of Membranes Spontaneous Ruture of Membrane: No Amniotic Membrane Rupture Time: 630 Amniotic Membrane Fluid Desc.: Clear Vaginal Bleeding Description: None Induction/Anesthesia Epidural Cath Placement - Time: 0848 L&D Stage2 Stage Two Stage II Date: Sep 03, 2020 Stage II Time: 12:15 Monitors and Tracing Monitor Mode: Internal Heart Rate: 125 Monitor Accelerations: Uniform Monitor Decelerations: Variable Skilled Nursing Variability: Average (6-10) Position: Right Occiput Anterior Presentation: Vertex Signs of Distress by FHT Signs of Distress no Cord Descript/Complications Cord Vessel Description: 3 Vessels Delivery Type Infant Delivery Method: Spontaneous Vaginal Anterior Shoulder: Right Episiotomy/Perineal Laceration Laceraction(s)/Extensions: No Episiotomy Description: Periurethral Extnsion/lac Condition of Delivery 1 minute Comment: 8 5 minute Comment: 9 Condition of Infant Condition of : Living Exam: No Observed Abnormalities Resuscitation Resuscitation: N/A - Spontaneous Resp L&D Stage3 Stage Three Stage III Date: Sep 03, 2020 Stage III Time: 12:21 Pictocin Pitocin Administration mu/min: 10 Pitocin ml/hr: 10 Pitocin Administration Comment: Pitocin increased per protocol Placenta Delivery Placenta Delivery: Spontaneous Delivery Summary Summary Estimated blood loss (mL): 150 Condition of Delivery Examined: Cervix Examined Post Hemorrhage: No Intervention Required none SOPHIA AVILA MD Sep 03, 2020 12:41
[2020-09-03] MEDS ORDERED: BENZOCAINE/MENTHOL (DERMOPLAST) 56 ML CAN TP PRN (12:45)
[2020-09-03] MEDS ORDERED: TETANUS,DIPTH,PERTUSS P/F (BOOSTRIX) 0.5 ML VIAL IM ONE (12:45)
[2020-09-03] MEDS ORDERED: WITCH HAZEL(TUCKS) 40 EA JAR TOP PRN (12:45)
[2020-09-03] MEDS ORDERED: MEASLES,MUMPS,RUBELLA 1 EA INJ SQ ONE (12:45)
[2020-09-03] MEDS ORDERED: IBUPROFEN 600 MG (MOTRIN) TAB PO ONE (13:36)
[2020-09-03] MEDS ORDERED: ACETAMINOPHEN 500 MG TAB (TYLENOL) ONE (13:38)
[2020-09-03] MEDS: ACETAMINOPHEN 500 MG TAB (TYLENOL) PO SCH ×2 (13:45→19:47)
[2020-09-03] MEDS: IBUPROFEN 600 MG (MOTRIN) TAB PO SCH ×2 (13:45→19:47)
[2020-09-03] MEDS ORDERED: CATHETER FLUSH 10 ML SYR IV SCH ×2 (14:00)
[2020-09-03] MEDS: DOCUSATE SODIUM 100 MG (COLACE) CAP PO SCH (19:47)
[2020-09-04 00:12] VITALS: BP 104/56
[2020-09-04] MEDS: ACETAMINOPHEN 500 MG TAB (TYLENOL) PO SCH ×2 (02:00→09:07)
[2020-09-04] MEDS: IBUPROFEN 600 MG (MOTRIN) TAB PO SCH ×2 (02:00→09:07)
[2020-09-04 04:00] VITALS: BP 110/54
[2020-09-04 05:45] LABS: BASOPHILS # (AUTO) 0.1 10^3/uL (0.0-0.1); BASOPHILS % (AUTO) 1 % (0-10); EOSINOPHILS # (AUTO) 0.3 10^3/uL (0.0-0.3); EOSINOPHILS % (AUTO) 3 % (0-10); HEMATOCRIT 28 % (35-52); LYMPHOCYTES # (AUTO) 3.4 10^3/uL (1.0-4.0); LYMPHOCYTES % (AUTO) 29 % (12-44); MEAN CORPUSCULAR HEMOGLOBIN 29 pg (25-34); MEAN CORPUSCULAR HGB CONC 32 g/dL (32-36); MEAN CORPUSCULAR VOLUME 89 fL (80-99); MEAN PLATELET VOLUME 10.2 fL (9.0-12.2); MONOCYTES # (AUTO) 1.1 10^3/uL (0.0-1.0); MONOCYTES % (AUTO) 9 % (0-12); NEUTROPHILS # (AUTO) 6.9 10^3/uL (1.8-7.8); NEUTROPHILS % (AUTO) 59 % (42-75); PLATELET COUNT 224 10^3/uL (130-400); WHITE BLOOD COUNT 11.8 10^3/uL (4.3-11.0)
--- NOTE | 2020-09-04 06:54 | Discharge Summary ---
Diagnosis/Chief Complaint Date of Admission Sep 03, 2020 at 05:53 Date of Discharge Discharge Date: Sep 04, 2020 Discharge Time: 15:00 Admission Diagnosis Admission Diagnosis 1. Intrauterine at term 39 weeks gestation Discharge Diagnosis 1. Intrauterine at term 39 weeks gestation Reason Hospital Visit 24-year-old 5 now term 5 who initially presented to labor and delivery during the morning of September 03, 2020 for induction of labor. She was noted to be at 39 weeks 1 day gestation. She was noted to be GBS negative at 36 weeks perineal check. She had no significant contractions on presentation Discharge Summary-OBS Procedures 1. Epidural per anesthesia 2. Spontaneous vaginal delivery Discharge Physical Examination Allergies: Coded Allergies: Penicillins (Verified Allergy, Unknown, 04/28/17) Vitals & I&Os Vital Signs Date Time Temp Pulse Resp B/P (MAP) Pulse Ox O2 Delivery O2 Flow Rate FiO2 09/04/20 04:00 36.2 85 18 110/54 (72) 98 09/03/20 06:03 Room Air General Appearance: No Acute Distress Respiratory: Clear to Auscultation Cardiovascular: Regular Rate Abdominal: Soft (With uterus firm) Neuro: Normal Speech Hospital Course Was the Problem List Reviewed?: Yes Following admission in the morning of September 03, 2020 she underwent amniotomy with placement of scalp electrode. She received epidural early in her labor course and tolerated well. She required Pitocin augmentation to achieve adequate uterine contraction. Eventually she went on to deliver a term viable female with Apgars of 8 at 1 minute and 9 at 5 minutes. Following delivery she underwent routine care orders. She had no complications during the remainder of hospital stay. She tolerated regular diet. She was ambulatory and did not complain of any leg pain or chest pain. Her hemoglobin in the morning of September 04, 2020 was 9.0 and this was compared to admission of 10.0. She had all questions answered and was felt ready for dismissal during the afternoon of September 04, 2020. Pending Labs Laboratory Tests 09/04/20 05:03: White Blood Count 11.8, Red Blood Count 3.15, Hemoglobin 9.0, Hematocrit 28, Mean Corpuscular Volume 89, Mean Corpuscular Hemoglobin 29, Mean Corpuscular Hemoglobin Concent 32, Red Cell Distribution Width 13.8, Platelet Count 224, Mean Platelet Volume 10.2, Immature Granulocyte % (Auto) 1, Neutrophils (%) (Auto) 59, Lymphocytes (%) (Auto) 29, Monocytes (%) (Auto) 9, Eosinophils (%) (Auto) 3, Basophils (%) (Auto) 1, Neutrophils # (Auto) 6.9, Lymphocytes # (Auto) 3.4, Monocytes # (Auto) 1.1, Eosinophils # (Auto) 0.3, Basophils # (Auto) 0.1, Immature Granulocyte # (Auto) 0.1 Discharge Instructions to patient/family Please see electronic discharge instructions given to patient. Discharge Medications Reviewed and agree with Discharge Medication list on patient's Discharge Instruction sheet SOPHIA AVILA MD Sep 04, 2020 06:54
--- NOTE | 2020-09-04 06:55 | Discharge Inst-Women's Service ---
Discharge Inst-Women's Serv Depart Medication/Instructions New, Converted or Re-Newed RX: Other Instructions For uterine cramping may take ibuprofen [id number] 2 tablets or 3 tablets every 6 hours as needed Problems Reviewed?: Yes Consults/Follow Up Additional Follow Up: Yes (With Dr. Avila in 6 weeks) Activity Activity: Activity as Tolerated Driving Instructions: You May Drive Nothing Inside Vagina: No [place] (For 6 weeks) Diet Discharge Diet: Regular Diet Return to The Hospital For: As below Symptoms to Report to : Bleeding Excessive, Fever Over 101 Degrees F, Vaginal Discharge Foul For Any Problems or Questions: Contact Your Physician SOPHIA AVILA MD Sep 04, 2020 06:55
--- NOTE | 2020-09-04 07:19 | Anesthesia-Regional Post-Op ---
Regional Patient Condition Mental Status: Alert, Oriented x3 Circulation: Same as Pre-Op Headache: Absent Sensation: Full Recovery Motor Block: Absent Post Op Complications Complications None Follow Up Care/Instructions Patient Instructions None needed. Anesthesia/Patient Condition Patient is doing well, no complaints, stable vital signs, no apparent adverse anesthesia problems. No complications reported per nursing. ASIA MOTT CRNA Sep 04, 2020 07:19
[2020-09-04 08:00] VITALS: BP 105/58
[2020-09-04] MEDS: DOCUSATE SODIUM 100 MG (COLACE) CAP PO SCH (09:06)
[2020-09-04 12:00] VITALS: BP 106/74
[2020-09-04 14:35] VITALS: BP 106/74
== END 2020-09-04 14:35 | disposition home or self-care (01) | DRG 807 ==
LOC: LDRP 05:53 → EDPENDDISTM 09-04 14:00
PROVIDERS: ADMIT Family Medicine; ATTEND Family Medicine
PROC: 10E0XZZ Delivery of Products of Conception, External Approach (ICD-10-PCS; principal; 2020-09-03)
DX: O80 Encounter for full-term uncomplicated delivery (principal); Z37.0 Single live birth; Z3A.39 39 weeks gestation of pregnancy
CPT/HCPCS: 36415; 85025; 86850; 86900; 86901